=== PATIENT | female | born 1950 | race Caucasian/White ===

== ENCOUNTER 2017-06-11 18:50 | Inpatient (IN) | payer MEDICARE, MEDICAID ==
[~2017-06-11] VITALS: Ht 162.6 cm; Wt 129.4 kg
[~2017-06-11 18:50] MED LIST: ACET325T53 PO; ACID1TAB4 PO; AMLO10TA2 PO; ASCO500T9 PO; ATOR20TA PO; BISA10SU8 RC; BLOO-360 IN; CALC667C PO; CLON0.1T PO; DEXT50DI8 IV; DOCU100C36 PO; DULO60CA45 PO; FERR325T24 PO; FLUO20TA28 PO; FOLI0.8T2 PO; HYDR-552 PO; INSU100C SQ; INSU100V7 SQ; IPRA3AMP IH; MECL-102 PO; RIVA20TA PO; RXVAN IV; SENN-18 PO; ZINC220T PO
--- NOTE | 2017-06-11 19:00 | NUR ---
Pt unable to provide information about home medications, pt stated " my doctor is faxing a list ".
--- NOTE | 2017-06-11 19:02 | NUR ---
sbar report to wili cope.
[2017-06-11 19:51] LABS: BASOPHILS # (AUTO) 0.1 K/uL (0.0-8.0); BASOPHILS % (AUTO) 0.9 % (0.0-2.0); EOSINOPHILS % (AUTO) 0.8 % (0.0-7.0); HEMATOCRIT 38.7 % (31.2-41.9); HEMOGLOBIN 12.8 g/dL (10.9-14.3); LYMPHOCYTES # (AUTO) 1.6 K/uL (20.0-40.0); LYMPHOCYTES % (AUTO) 24.9 % (20.5-51.5); MEAN CORPUSCULAR HGB CONC 33 g/dL (32.3-35.6); MEAN CORPUSCULAR VOLUME 88.2 fL (75.5-95.3); MONOCYTES # (AUTO) 0.4 K/uL (2.0-10.0); MONOCYTES % (AUTO) 6.1 % (0.0-11.0); NEUTROPHILS # (AUTO) 4.3 K/uL (1.8-8.9); NEUTROPHILS % (AUTO) 67.3 % (38.5-71.5); PLATELET COUNT (AUTO) 214 K/uL (179-408); RED BLOOD CELL COUNT(AUTO) 4.39 MIL/uL (3.63-4.92); WHITE BLOOD COUNT (AUTO) 6.4 K/uL (3.8-11.8)
[2017-06-11 21:27] LABS: *BLOOD, URINE NEGATIVE (NEGATIVE); *COLOR,URINE YELLOW (YELLOW); *KETONES,URINE TRACE (NEGATIVE); *PROTEIN,URINE 1+ (NEGATIVE); *UROBILINOGEN,URINE 0.2 E.U./dl (NORMAL); LEUKOCYTE ESTERASE ,URINE TRACE (NEGATIVE); NITRITE, URINE NEGATIVE (NEGATIVE); UGLUCOSE NEGATIVE (NEGATIVE)
[2017-06-11 21:46] LABS: *BILIRUBIN,URIN NEGATIVE (NEGATIVE); *CLARITY,URINE HAZY (CLEAR)
[2017-06-11 21:47] LABS: BACTERIA,URINE FEW /HPF (NONE SEEN); MUCUS,URINE MODERATE /LPF (0-FEW); RBC,URINE 0-3 /HPF (0-3); SQUAMOUS EPITHELIAL CELL,UR FEW /HPF (NONE SEEN); URINE AMORPHOUS URATE MODERATE /HPF
[2017-06-11] MEDS ORDERED: HYDROCODONE/APAP 5-325MG TABLET PO ONE (22:15)
--- NOTE | 2017-06-11 22:15 | NUR ---
Patient reports left foot in pain, 12/03. MD notified.
[2017-06-11] MEDS ORDERED: HYDROCODONE/APAP 5-325MG TABLET ONE (22:16)
--- NOTE | 2017-06-11 23:00 | NUR ---
Received admission report from [facility]
--- NOTE | 2017-06-11 23:00 | NUR ---
Passed report to Marah Chen.
--- NOTE | 2017-06-11 23:04 | NUR ---
Reassessed pain, patient states still hurts but a little better pain now 5/10 on left foot.
[2017-06-11] MEDS ORDERED: ACETAMINOPHEN 325 MG TABLET PO PRN (23:30)
[2017-06-11] MEDS ORDERED: ONDANSETRON 4 MG/2 ML VIAL IV PRN (23:30)
[2017-06-11] MEDS ORDERED: DEXTROSE 50% 50 ML DISP.SYRIN IV PRN (23:30)
[2017-06-11] MEDS ORDERED: Z GUARD REMEDY PASTE 57 GM TUBE TOP PRN (23:30)
[2017-06-12 00:33] VITALS: BP 132/56
[2017-06-12] MEDS ORDERED: VANCOMYCIN IV 1,500 MG in IV DEXTROSE 5% 250 ML IV ONE (01:00)
--- NOTE | 2017-06-12 01:25 | NUR ---
Admitted patient from ER via lisa DX; wound. AAO X 4, able to make needs known. Routine admission care done. Plan of care initiated.
--- NOTE | 2017-06-12 01:39 | NUR ---
Vancocin IV ATB not given. No IV access, awaiting for PICC line placement in morning.
[2017-06-12 05:01] VITALS: BP 123/77
--- NOTE | 2017-06-12 06:31 | NUR ---
Slept well. No complaint presented all night. All needs attended and met. No significant event reported. Continue care as planned.
[2017-06-12] MEDS: BLOOD SUGAR DIAGNOSTIC 1 EACH STRIP VI SCH ×4 (06:44→21:26)
[2017-06-12 07:09] LABS: BASOPHILS % (AUTO) 0.4 % (0.0-2.0); EOSINOPHILS # (AUTO) 0.1 K/uL (0.0-0.7); EOSINOPHILS % (AUTO) 1.8 % (0.0-7.0); HEMATOCRIT 34.2 % (31.2-41.9); HEMOGLOBIN 11.4 g/dL (10.9-14.3); LYMPHOCYTES # (AUTO) 1.6 K/uL (20.0-40.0); LYMPHOCYTES % (AUTO) 32.5 % (20.5-51.5); MEAN CORPUSCULAR HEMOGLOBIN 28.9 uug (24.7-32.8); MEAN CORPUSCULAR HGB CONC 33 g/dL (32.3-35.6); MEAN CORPUSCULAR VOLUME 87.1 fL (75.5-95.3); MONOCYTES # (AUTO) 0.4 K/uL (2.0-10.0); MONOCYTES % (AUTO) 7.9 % (0.0-11.0); NEUTROPHILS # (AUTO) 2.8 K/uL (1.8-8.9); NEUTROPHILS % (AUTO) 57.4 % (38.5-71.5); PLATELET COUNT (AUTO) 211 K/uL (179-408); RED BLOOD CELL COUNT(AUTO) 3.93 MIL/uL (3.63-4.92); WHITE BLOOD COUNT (AUTO) 4.9 K/uL (3.8-11.8)
[2017-06-12 07:36] LABS: CREATININE 1.4 mg/dL (0.6-1.3); MAGNESIUM 2.3 mg/dL (1.8-2.4)
[2017-06-12] MEDS: INSULIN REGULAR, HUMAN 300 UNIT/3 ML VIAL SQ PRN ×2 (07:51→11:57)
--- NOTE | 2017-06-12 08:00 | NUR ---
AWAKE ALERT AND ORIENTED INSULIN PER COVERAGE GIVEN ORDERED DENIES PAIN OR DISCOMFORTS AT THIS TIME ON ROOM AIR WITH NO SHORTNESS OF BREATH AT THIS TIME LEFT FOOT WITH DRESSING INTACT WITH NO DRAINAGE AT THIS TIME AWAITING FOR MID LINE PLACEMENT AT THIS TIME MADE COMFORTABLE AND WILL CONTINUE TO OBSERVE
[2017-06-12] MEDS: ACIDOPHILUS/BULGARICUS CHEW TAB PO SCH ×2 (08:40→16:39)
[2017-06-12] MEDS: ZINC SULFATE 220 MG CAPSULE PO SCH (08:41)
[2017-06-12] MEDS: DULOXETINE 60 MG CAPSULE.DR PO SCH (08:41)
[2017-06-12] MEDS: CALCIUM ACETATE 667 MG CAPSULE PO SCH ×3 (08:41→16:39)
[2017-06-12] MEDS: ASCORBIC ACID 500 MG TABLET PO SCH ×2 (08:41→16:39)
[2017-06-12] MEDS: FOLIC ACID/VITAMIN B COMP W-C TABLET PO SCH (08:41)
[2017-06-12] MEDS: AMLODIPINE 10 MG TABLET PO SCH (08:42)
[2017-06-12] MEDS: DOCUSATE SODIUM 100 MG CAPSULE PO SCH ×2 (08:48→16:40)
[2017-06-12] MEDS: HYDROCODONE/APAP 5-325MG TABLET PO PRN ×2 (09:12→16:40)
--- NOTE | 2017-06-12 09:33 | NUR ---
THE REAL TIME OPERATOR AWARE THAT PATIENT HAS NO IV SITE STATED WILL ATTEMPT TO PLACE THE LINE HIMSELF
--- NOTE | 2017-06-12 10:20 | NUR ---
THE 911 EMERGENCY DISPATCHER HERE AND INSERTED A GAUGE 20 TO HER LEFT FOREARM INTACT AND PATENT FLUSED PER PROTOCOL
[2017-06-12 11:38] VITALS: BP 128/49
[2017-06-12] MEDS: IV NS 1000 ML 1,000 ML IV PRN (11:47)
[2017-06-12] MEDS: FLUOXETINE HCL 20 MG CAPSULE PO SCH (11:47)
[2017-06-12] MEDS: OXYCODONE HCL 20 MG TAB.SR.12H PO SCH ×2 (12:35→20:47)
[2017-06-12] MEDS ORDERED: VANCOMYCIN IV 1,750 MG in IV NORMAL SALINE 500 ML IV SCH (14:00)
[2017-06-12 15:42] VITALS: BP 101/48
--- NOTE | 2017-06-12 16:28 | NUR ---
Clinical pharmacy note-Vancomycin dosing per pharmacy Subjective: To start Vancomycin dosing on this patient for suspected infection(left foot ulcer with possible gangrene) Patient has history of osteomyelitis. Objective: BUN 23 Scr 1.4 WBC 4.9 Temp 98.4 Ht 5'4" Wt 285 lbs Assessment/Plan: Vancomycin was ordered during the night but not given(no IV access). First dose of Vancomycin given today at 1400 as 1750mg IV every 24hrs. Will draw trough by 4th dose(not ordered yet)for expected trough around 16. Will monitor daily.
[2017-06-12] MEDS: SENNOSIDES 1 TABLET PO SCH (16:40)
--- NOTE | 2017-06-12 16:58 | NUR ---
DRESSING CHANGED TO HER RIGHT BIG TOE AND THE LEFT FOOT TOES WOUNG SEEN BY JUAN FORD WITH NEW ORDERS AND NOTED.
[2017-06-12] MEDS: FERROUS SULFATE 325 MG TABEC PO SCH (17:12)
[2017-06-12] MEDS: RIVAROXABAN 10 MG TABLET PO SCH (17:16)
--- NOTE | 2017-06-12 19:30 | NUR ---
Awake, watching TV during initial rounds. Denies any pain/discomforts at this time. Bilateral foot dressing dry and intact. Able to reposition self for comfort. Will continue care as planned.
[2017-06-12] MEDS: ATORVASTATIN 20 MG TABLET PO SCH (20:47)
--- NOTE | 2017-06-12 20:52 | NUR ---
Seen by Car Wash Attendant Automatic today. Patient tolerated procedure well.
[2017-06-12 20:56] VITALS: BP 96/50
[2017-06-12] MEDS: INSULIN REGULAR, HUMAN 300 UNITS/3 ML VIAL SQ PRN (21:28)
[2017-06-13] MEDS: IV NS 1000 ML 1,000 ML IV PRN ×2 (02:12→20:03)
[2017-06-13 04:00] VITALS: BP 123/71
[2017-06-13] MEDS: BLOOD SUGAR DIAGNOSTIC 1 EACH STRIP VI SCH ×4 (04:56→20:41)
[2017-06-13] MEDS: HYDROCODONE/APAP 5-325MG TABLET PO PRN (06:14)
[2017-06-13] MEDS ORDERED: OFLO5DRO3 LEFTEYE (06:34)
[2017-06-13] MEDS ORDERED: PRED5DRO16 EACHEYE (06:34)
[2017-06-13] MEDS ORDERED: NEPA1.7D OP (06:34)
--- NOTE | 2017-06-13 06:38 | NUR ---
Medicated once for complaint of left foot pain. Will monitor otherwise no significant event reported all night. Continue current plan of care.
--- NOTE | 2017-06-13 07:30 | NUR ---
AWAKE ALERT AND ORIENTED REMAIN ON ROOM AIR WITH NO SHORTNESS OF BREATH AT THIS TIME.REMAIN ON IVF ORDERED WITH NO S/S OF INFILTERATION ON SITE.NO S/S OF HYPO/HYPERGLYCEMIC REACTIONS AT THIS TIME DRESSING IS DRY AND INTACT TO LEFT FOOT MADE COMFORTABLE.
[2017-06-13] MEDS: INSULIN REGULAR, HUMAN 300 UNIT/3 ML VIAL SQ PRN ×2 (07:53→11:45)
[2017-06-13] MEDS: DULOXETINE 60 MG CAPSULE.DR PO SCH (08:02)
[2017-06-13] MEDS: FLUOXETINE HCL 20 MG CAPSULE PO SCH (08:03)
[2017-06-13] MEDS: ASCORBIC ACID 500 MG TABLET PO SCH ×2 (08:03→16:42)
[2017-06-13] MEDS: ZINC SULFATE 220 MG CAPSULE PO SCH (08:03)
[2017-06-13] MEDS: ACIDOPHILUS/BULGARICUS CHEW TAB PO SCH ×2 (08:03→16:42)
[2017-06-13] MEDS: FOLIC ACID/VITAMIN B COMP W-C TABLET PO SCH (08:03)
[2017-06-13] MEDS: CALCIUM ACETATE 667 MG CAPSULE PO SCH ×3 (08:03→16:42)
[2017-06-13] MEDS: FERROUS SULFATE 325 MG TABEC PO SCH ×3 (08:03→17:25)
[2017-06-13] MEDS: AMLODIPINE 10 MG TABLET PO SCH (08:04)
[2017-06-13] MEDS: OXYCODONE HCL 20 MG TAB.SR.12H PO SCH ×2 (08:04→20:37)
[2017-06-13] MEDS: SENNOSIDES 1 TABLET PO SCH ×2 (08:05→16:52)
[2017-06-13] MEDS: DOCUSATE SODIUM 100 MG CAPSULE PO SCH ×2 (08:05→16:42)
[2017-06-13 11:00] LABS: BASOPHILS # (AUTO) 0.1 K/uL (0.0-8.0); BASOPHILS % (AUTO) 0.7 % (0.0-2.0); EOSINOPHILS # (AUTO) 0.2 K/uL (0.0-0.7); EOSINOPHILS % (AUTO) 2.1 % (0.0-7.0); HEMATOCRIT 35.2 % (31.2-41.9); HEMOGLOBIN 11.3 g/dL (10.9-14.3); LYMPHOCYTES # (AUTO) 2.5 K/uL (20.0-40.0); LYMPHOCYTES % (AUTO) 32.1 % (20.5-51.5); MEAN CORPUSCULAR HEMOGLOBIN 28.7 uug (24.7-32.8); MEAN CORPUSCULAR HGB CONC 32 g/dL (32.3-35.6); MEAN CORPUSCULAR VOLUME 89.5 fL (75.5-95.3); MONOCYTES # (AUTO) 0.5 K/uL (2.0-10.0); MONOCYTES % (AUTO) 6.8 % (0.0-11.0); NEUTROPHILS # (AUTO) 4.5 K/uL (1.8-8.9); NEUTROPHILS % (AUTO) 58.3 % (38.5-71.5); PLATELET COUNT (AUTO) 176 K/uL (179-408); RED BLOOD CELL COUNT(AUTO) 3.94 MIL/uL (3.63-4.92); WHITE BLOOD COUNT (AUTO) 7.7 K/uL (3.8-11.8)
[2017-06-13 11:08] LABS: CREATININE 1.5 mg/dL (0.6-1.3); MAGNESIUM 2.1 mg/dL (1.8-2.4); PHOSPHOROUS 4.1 mg/dL (2.5-4.9); POTASSIUM 4.5 mmol/L (3.5-5.1)
--- NOTE | 2017-06-13 11:30 | NUR ---
Clinical pharmacy note-Vancomycin dosing per pharmacy Subjective: To continue Vancomycin dosing on this patient for suspected infection(left foot ulcer with possible gangrene) Patient has history of osteomyelitis. Objective: BUN 25 Scr 1.5 WBC 7.7 Temp 98.7 Ht 5'4" Wt 285 lbs Assessment/Plan: Since srcr has increased, will change vancomycin dose to vanco 1500mg IVPB q24h for predicted vanco trough level of 16.5 at steady state. 1st dose is due today at 1400. Plan to draw trough by 4th dose(not ordered yet). Will monitor srcr and adjust the dose if needed. Will monitor daily.
[2017-06-13 11:41] VITALS: BP 122/76
[2017-06-13] MEDS: VANCOMYCIN IV 1,500 MG in IV NORMAL SALINE 500 ML IV SCH (13:54)
[2017-06-13 15:50] VITALS: BP 97/53
[2017-06-13] MEDS ORDERED: PIPERACILLIN/TAZOBACTAM/D5W 3.375 G in PREMIXED 1 EACH IV SCH (16:15)
[2017-06-13] MEDS: PIPERACILLIN/TAZOBACTAM/D5W 3.375 G in PREMIXED 1 EACH IV SCH ×2 (16:55→22:04)
[2017-06-13] MEDS: RIVAROXABAN 10 MG TABLET PO SCH (17:26)
[2017-06-13] MEDS ORDERED: PIPERACILLIN/TAZOBACTAM/D5W 2.25 G in PREMIXED 1 EACH IV SCH (18:00)
--- NOTE | 2017-06-13 18:00 | NUR ---
REMAIN ON IV ATB ORDERED WITH NO ADVERSE OR ALLERGIC REACTIONS AT THIS TIME REMAIN ON PAIN MEDICATIONS AND PATIENT IS COMFORTABLE NOT IN DISTRESS.
--- NOTE | 2017-06-13 19:15 | NUR ---
RECEIVED PT AWAKE, ALERT, ORIENTEDX4. PT SHOWS NO SIGNS OF DISTRESS. CALL LIGHT WITHIN REACH. BED IN LOW POSITION AND BED ALARM ON. WILL CONTINUE TO MONITOR.
[2017-06-13 20:00] VITALS: BP 128/54
[2017-06-13] MEDS: ATORVASTATIN 20 MG TABLET PO SCH (20:36)
[2017-06-13] MEDS: INSULIN REGULAR, HUMAN 300 UNITS/3 ML VIAL SQ PRN (20:45)
[2017-06-13] MEDS ORDERED: prednisoLONE ACET 1% OPHT DROP 5 ML BOTTLE EACHEYE SCH (21:00)
[2017-06-13] MEDS ORDERED: HOME MED MISCELLANEOUS XX SCH ×2 (21:30)
[2017-06-13] MEDS: OFLOXACIN 0.3% LEFTEYE SCH (22:05)
[2017-06-13] MEDS: PREDNISOLONE 1% LEFTEYE SCH (22:05)
[2017-06-14 04:31] VITALS: BP 120/46
[2017-06-14] MEDS: PIPERACILLIN/TAZOBACTAM/D5W 3.375 G in PREMIXED 1 EACH IV SCH ×3 (05:09→21:14)
--- NOTE | 2017-06-14 06:08 | NUR ---
PT SLEPT THROUGHOUT THE SHIFT. PT SHOWS NO SIGNS OF ACUTE DISTRESS. PT VITAL SIGNS WITHIN NORMAL LIMIT. PRESCRIBED MEDICATION GIVEN AND PT TOLERATED IT WELL. PT SAFETY AND COMFORT PROVIDED.
[2017-06-14] MEDS: BLOOD SUGAR DIAGNOSTIC 1 EACH STRIP VI SCH ×4 (06:31→21:23)
--- NOTE | 2017-06-14 07:45 | NUR ---
RECEIVED IN BED WITH EYES CLOSED OPENS EYES WHEN NAME IS CALLED DENIES PAIN OR DISCOMFORTS AT THIS TIME.REMAIN ON IVF ORDERED WITH NO S/S OF INFILTERATION ON SITE.NO S/S OF HYPO/HYPERGLYCEMIC REACTIONS AT THIS TIME.WILL CONTINUE TO OBSERVE.
[2017-06-14] MEDS: DULOXETINE 60 MG CAPSULE.DR PO SCH (08:48)
[2017-06-14] MEDS: FLUOXETINE HCL 20 MG CAPSULE PO SCH (08:48)
[2017-06-14] MEDS: ZINC SULFATE 220 MG CAPSULE PO SCH (08:48)
[2017-06-14] MEDS: FOLIC ACID/VITAMIN B COMP W-C TABLET PO SCH (08:48)
[2017-06-14] MEDS: CALCIUM ACETATE 667 MG CAPSULE PO SCH ×3 (08:49→16:49)
[2017-06-14] MEDS: ACIDOPHILUS/BULGARICUS CHEW TAB PO SCH ×2 (08:49→16:49)
[2017-06-14] MEDS: FERROUS SULFATE 325 MG TABEC PO SCH ×3 (08:49→17:11)
[2017-06-14] MEDS: ASCORBIC ACID 500 MG TABLET PO SCH ×2 (08:49→16:49)
[2017-06-14] MEDS: OXYCODONE HCL 20 MG TAB.SR.12H PO SCH ×2 (08:50→21:15)
[2017-06-14] MEDS: AMLODIPINE 10 MG TABLET PO SCH (08:50)
[2017-06-14] MEDS: DOCUSATE SODIUM 100 MG CAPSULE PO SCH ×2 (08:55→16:49)
[2017-06-14] MEDS: PREDNISOLONE 1% LEFTEYE SCH ×4 (08:55→21:16)
[2017-06-14] MEDS: SENNOSIDES 1 TABLET PO SCH ×2 (08:56→16:49)
[2017-06-14] MEDS: ILEVRO LEFTEYE SCH (08:57)
[2017-06-14] MEDS: OFLOXACIN 0.3% LEFTEYE SCH ×4 (08:58→21:16)
[2017-06-14 11:15] VITALS: BP 140/65
[2017-06-14] MEDS: IV NS 1000 ML 1,000 ML IV PRN (12:11)
[2017-06-14] MEDS: INSULIN REGULAR, HUMAN 300 UNIT/3 ML VIAL SQ PRN (12:20)
[2017-06-14] MEDS: VANCOMYCIN IV 1,500 MG in IV NORMAL SALINE 500 ML IV SCH (13:39)
--- NOTE | 2017-06-14 14:07 | NUR ---
Clinical pharmacy note-Vancomycin dosing per pharmacy Subjective: To continue Vancomycin dosing on this patient for suspected infection(left foot ulcer with possible gangrene) Patient has history of osteomyelitis. Objective: BUN 25 (2) Scr 1.5 (2) WBC 7.7 (2) Temp 98.3 Ht 5'4" Wt 285 lbs Assessment/Plan: Will continue vancomycin dose to vanco 1500mg IVPB q24h for predicted vanco trough level of 16.5 at steady state. 2nd dose is due today at 1400. Plan to draw trough by 4th dose(not ordered yet). Will monitor srcr and adjust the dose if needed. Will monitor daily.
--- NOTE | 2017-06-14 14:30 | NUR ---
CALLED DR OSBORN AND NOTIFIED HIM RE RESULTS OF THE SENSITIVITIES FOR STAPH AUREUS AND PROTEOS MIRABILIS BUT ENTEROCOCCUS SPECIES NOT AVAILABLE YET WITH NO NEW ORDERS AT THIS TIME.
[2017-06-14 15:10] VITALS: BP 124/57
[2017-06-14] MEDS: RIVAROXABAN 10 MG TABLET PO SCH (17:12)
--- NOTE | 2017-06-14 19:30 | NUR ---
RECEIVED PT AWAKE, ALERT, ORIENTEDX3. PT SHE'S NO SIGNS OF ACUTE DISTRESS. PT SAID HER LEFT FOOT HURTS. PT IV INTACT AND PATENT. CALL LIGHT WITHIN REACH. WILL CONTINUE TO MONITOR.
[2017-06-14 20:27] VITALS: BP 130/64
[2017-06-14] MEDS: ATORVASTATIN 20 MG TABLET PO SCH (21:15)
[2017-06-14] MEDS: INSULIN REGULAR, HUMAN 300 UNITS/3 ML VIAL SQ PRN (21:42)
[2017-06-15 05:09] VITALS: BP 102/44
[2017-06-15] MEDS: PIPERACILLIN/TAZOBACTAM/D5W 3.375 G in PREMIXED 1 EACH IV SCH ×3 (05:45→21:28)
[2017-06-15] MEDS: IV NS 1000 ML 1,000 ML IV PRN (05:45)
--- NOTE | 2017-06-15 06:30 | NUR ---
PT SLEPT THROUGHOUT THE SHIFT.PT VITAL SIGNS WITHIN NORMAL LIMIT. ALL PRESCRIBED MEDICATIONS GIVEN AND PT TOLERATED IT WELL. IV PATENT AND NO INLITRATION. CALL LIGHT WITHIN REACH, BED ALARM ON AND IN LOW POSITION. SAFETY AND COMFORT PROVIDED. ALL NEEDS ARE MET. CONTINUE CARE OF PLAN.
--- NOTE | 2017-06-15 07:00 | NUR ---
PT BLOOD SUGAR 146. ENDORSED TO DAYSHIFT NURSE.
[2017-06-15] MEDS: BLOOD SUGAR DIAGNOSTIC 1 EACH STRIP VI SCH ×4 (07:24→21:42)
[2017-06-15] MEDS: FERROUS SULFATE 325 MG TABEC PO SCH ×3 (08:00→17:04)
[2017-06-15] MEDS: INSULIN REGULAR, HUMAN 300 UNIT/3 ML VIAL SQ PRN ×2 (08:29→11:42)
--- NOTE | 2017-06-15 08:30 | NUR ---
PATIENT IS AWAKE ALERT AND ORIENTED REMAIN ON CONTACT ISOLATION AND PRECAUTION RELATED TO MRSA ON HER LEFT LEG WOUND.REMAIN ON ANTIBIOTICS ORDERED WITH NO S/S OF ADVERSE OR ALLERGIC REACTIONS AT THIS TIME. ON IVF WITH NO S/S OF INFILTERATION ON HER LEFT ARM CALL LIGHTS AND HER PERSONAL BELONGINGS ARE WITHIN EASY REACH MADE COMFORTABLE NO DISTRESS AT THIS TIME.
[2017-06-15] MEDS: CALCIUM ACETATE 667 MG CAPSULE PO SCH ×3 (08:39→16:39)
[2017-06-15] MEDS: DOCUSATE SODIUM 100 MG CAPSULE PO SCH ×2 (08:39→16:40)
[2017-06-15] MEDS: ACIDOPHILUS/BULGARICUS CHEW TAB PO SCH ×2 (08:39→16:40)
[2017-06-15] MEDS: FOLIC ACID/VITAMIN B COMP W-C TABLET PO SCH (08:39)
[2017-06-15] MEDS: ASCORBIC ACID 500 MG TABLET PO SCH ×2 (08:39→16:40)
[2017-06-15] MEDS: DULOXETINE 60 MG CAPSULE.DR PO SCH (08:40)
[2017-06-15] MEDS: OXYCODONE HCL 20 MG TAB.SR.12H PO SCH ×2 (08:40→21:28)
[2017-06-15] MEDS: FLUOXETINE HCL 20 MG CAPSULE PO SCH (08:40)
[2017-06-15] MEDS: SENNOSIDES 1 TABLET PO SCH ×2 (08:40→16:40)
[2017-06-15] MEDS: ZINC SULFATE 220 MG CAPSULE PO SCH (08:40)
[2017-06-15] MEDS: AMLODIPINE 10 MG TABLET PO SCH (08:41)
[2017-06-15] MEDS: ILEVRO LEFTEYE SCH (08:43)
[2017-06-15] MEDS: PREDNISOLONE 1% LEFTEYE SCH ×4 (08:43→21:42)
[2017-06-15] MEDS: OFLOXACIN 0.3% LEFTEYE SCH ×4 (08:43→21:41)
--- NOTE | 2017-06-15 10:00 | NUR ---
RESTING DOSING ON AND OFF COMFORTABLE AT THIS TIME.WILL CONTINUE TO OBSERVE.
[2017-06-15 11:13] VITALS: BP 141/64
--- NOTE | 2017-06-15 11:26 | NUR ---
PATIENT SEEN AND EXAMINED BY DR HUDSON WITH NEW ORDERS AND NOTED.
[2017-06-15 11:56] LABS: BILIRUBIN,TOTAL 0.2 mg/dL (0.2-1.0); CREATININE 1.5 mg/dL (0.6-1.3); MAGNESIUM 2.3 mg/dL (1.8-2.4); PHOSPHOROUS 4.6 mg/dL (2.5-4.9); POTASSIUM 4.8 mmol/L (3.5-5.1); TOTAL PROTEIN, SERUM 6.3 g/dL (6.4-8.2)
[2017-06-15] MEDS: HYDROCODONE/APAP 5-325MG TABLET PO PRN (12:26)
--- NOTE | 2017-06-15 12:26 | NUR ---
Clinical pharmacy note-Vancomycin dosing per pharmacy Subjective: To continue Vancomycin dosing on this patient for suspected infection(left foot ulcer with possible gangrene) Patient has history of osteomyelitis. Objective: BUN 25 (06/13) Scr 1.5 (06/13) WBC 7.7 (06/13) Temp 98.4 Ht 5'4" Wt 285 lbs Assessment/Plan: Will continue vancomycin dose to vanco 1500mg IVPB q24h for predicted vanco trough level of 16.5 at steady state. 3rd dose is due today at 1400. Plan to draw trough by 4th dose(ordered for 06/16 at 1330). Pharmacy shall review the level when available & adjust the dose if needed. Will monitor daily.
[2017-06-15 13:34] LABS: BASOPHILS % (AUTO) 0.5 % (0.0-2.0); EOSINOPHILS # (AUTO) 0.2 K/uL (0.0-0.7); EOSINOPHILS % (AUTO) 2.4 % (0.0-7.0); HEMOGLOBIN 11.2 g/dL (10.9-14.3); LYMPHOCYTES # (AUTO) 1.8 K/uL (20.0-40.0); LYMPHOCYTES % (AUTO) 24.6 % (20.5-51.5); MEAN CORPUSCULAR HEMOGLOBIN 28.9 uug (24.7-32.8); MEAN CORPUSCULAR HGB CONC 33 g/dL (32.3-35.6); MEAN CORPUSCULAR VOLUME 88.1 fL (75.5-95.3); MONOCYTES # (AUTO) 0.5 K/uL (2.0-10.0); MONOCYTES % (AUTO) 6.3 % (0.0-11.0); NEUTROPHILS # (AUTO) 4.9 K/uL (1.8-8.9); NEUTROPHILS % (AUTO) 66.2 % (38.5-71.5); PLATELET COUNT (AUTO) 185 K/uL (179-408); RED BLOOD CELL COUNT(AUTO) 3.86 MIL/uL (3.63-4.92); WHITE BLOOD COUNT (AUTO) 7.4 K/uL (3.8-11.8)
[2017-06-15] MEDS: VANCOMYCIN IV 1,500 MG in IV NORMAL SALINE 500 ML IV SCH (14:41)
[2017-06-15 15:03] VITALS: BP 114/60
--- NOTE | 2017-06-15 16:06 | NUR ---
ORDER TO DISCHARGE PATIENT TO [facility] NOTED AND CARRIED OUT AWAITING FOR DISCHARGE TO BE FINALISED.THE MEASUREMENT AND SENSING TECHNICIAN SPOKE WITH THE PATIENT AND SHE AGREES TO GO TO [facility] TODAY.
--- NOTE | 2017-06-15 16:20 | NUR ---
DR REVELES THE VASCULAR SURGEON HERE TO SEE PATIENT AND STATED THAT PATIENT SHOULD CALL HIM AND ARRANGE FOR SURGERY ON HER LEFT FOOT.PATIENT AWARE .
--- NOTE | 2017-06-15 16:55 | NUR ---
PER DR JEWELL PATIENT WILL NEED TO BE ON VANCO AND ZOSYN FOR 14 DAYS AND ONLY HAS A PERIPHERAL LINE SO ORDERED MID LINE SUSAN THE PICC LINE NURSE CALLED BY THE HYDROMETER FINISHER AND MESSAGE LEFT ON HIS VOICE MAIL.PATIENT AWARE OF THE NEED FOR MID LINE .
[2017-06-15] MEDS: RIVAROXABAN 10 MG TABLET PO SCH (17:04)
--- NOTE | 2017-06-15 17:50 | NUR ---
[facility] ATTENDANT STATED THAT PATIENT WILL BE DISCHARGED TOMORROW INSTEAD PATIENT IS AWARE.
[2017-06-15 17:56] LABS: *BILIRUBIN,URIN NEGATIVE (NEGATIVE); *BLOOD, URINE NEGATIVE (NEGATIVE); *CLARITY,URINE SLIGHTLY CLOUDY (CLEAR); *COLOR,URINE YELLOW (YELLOW); *KETONES,URINE NEGATIVE (NEGATIVE); *PROTEIN,URINE NEGATIVE (NEGATIVE); *UROBILINOGEN,URINE 0.2 E.U./dl (NORMAL); LEUKOCYTE ESTERASE ,URINE 1+ (NEGATIVE); NITRITE, URINE NEGATIVE (NEGATIVE); UGLUCOSE NEGATIVE (NEGATIVE)
[2017-06-15 18:04] LABS: BACTERIA,URINE FEW /HPF (NONE SEEN); RBC,URINE 0-3 /HPF (0-3); SQUAMOUS EPITHELIAL CELL,UR MANY /HPF (NONE SEEN)
[2017-06-15 18:06] LABS: *CREATININE,URINE 97.1 mg/dL (30-125); *URINE TOTAL PROTEIN RANDOM 37.1 mg/dL (<150/24HR)
--- NOTE | 2017-06-15 19:45 | NUR ---
nsg: pt received a/o x 4. denies pain, sob or any discomfort. lungs sound clear to auscultate, on Ra. on cont ivf. dressings on left foot and right great toe dry and intact. call light within reach. bed alarm on.
--- NOTE | 2017-06-15 19:54 | NUR ---
nsg: spoke with hafsa walters. notified regarding order for midline. per Nicholas Walters will come in am to insert midline.
[2017-06-15 20:00] VITALS: BP 129/69
[2017-06-15] MEDS: ATORVASTATIN 20 MG TABLET PO SCH (21:28)
[2017-06-15] MEDS: INSULIN REGULAR, HUMAN 300 UNITS/3 ML VIAL SQ PRN (21:43)
[2017-06-16 04:00] VITALS: BP 158/59
--- NOTE | 2017-06-16 05:26 | NUR ---
nsg: all needs attended. kept clean and dry. had huge, formed, hard bm x 1. denies discomfort at this time. cont with treatment plan.
[2017-06-16] MEDS: IV NS 1000 ML 1,000 ML IV PRN (06:07)
[2017-06-16] MEDS: HYDROCODONE/APAP 5-325MG TABLET PO PRN ×2 (06:08→14:33)
[2017-06-16] MEDS: PIPERACILLIN/TAZOBACTAM/D5W 3.375 G in PREMIXED 1 EACH IV SCH ×2 (06:08→13:06)
[2017-06-16 06:39] LABS: BASOPHILS % (AUTO) 0.3 % (0.0-2.0); EOSINOPHILS # (AUTO) 0.2 K/uL (0.0-0.7); EOSINOPHILS % (AUTO) 2.2 % (0.0-7.0); HEMATOCRIT 32.5 % (31.2-41.9); HEMOGLOBIN 10.7 g/dL (10.9-14.3); LYMPHOCYTES # (AUTO) 1.6 K/uL (20.0-40.0); LYMPHOCYTES % (AUTO) 22.6 % (20.5-51.5); MEAN CORPUSCULAR HEMOGLOBIN 28.7 uug (24.7-32.8); MEAN CORPUSCULAR HGB CONC 33 g/dL (32.3-35.6); MEAN CORPUSCULAR VOLUME 87.5 fL (75.5-95.3); MONOCYTES # (AUTO) 0.4 K/uL (2.0-10.0); NEUTROPHILS # (AUTO) 4.9 K/uL (1.8-8.9); NEUTROPHILS % (AUTO) 68.9 % (38.5-71.5); PLATELET COUNT (AUTO) 190 K/uL (179-408); RED BLOOD CELL COUNT(AUTO) 3.71 MIL/uL (3.63-4.92); WHITE BLOOD COUNT (AUTO) 7.2 K/uL (3.8-11.8)
[2017-06-16] MEDS: BLOOD SUGAR DIAGNOSTIC 1 EACH STRIP VI SCH ×3 (06:48→16:30)
--- NOTE | 2017-06-16 06:49 | NUR ---
nsg: dressing changed on left foot. tolerated well. received norco 1 tab.
[2017-06-16 07:15] LABS: BILIRUBIN,TOTAL 0.3 mg/dL (0.2-1.0); CREATININE 1.4 mg/dL (0.6-1.3); MAGNESIUM 2.1 mg/dL (1.8-2.4); PHOSPHOROUS 3.8 mg/dL (2.5-4.9); POTASSIUM 4.2 mmol/L (3.5-5.1); TOTAL PROTEIN, SERUM 6.3 g/dL (6.4-8.2)
--- NOTE | 2017-06-16 07:20 | NUR ---
Received client in bed sleeping, there is no signs and symptoms of SOB, pain, distress or discomfort. IV hydration running at this time. Bed at lowest position for safety and call light within reach for assistance.
[2017-06-16] MEDS: FERROUS SULFATE 325 MG TABEC PO SCH ×3 (08:00→18:00)
--- NOTE | 2017-06-16 08:52 | NUR ---
Client refused Feosol due to constipation.
[2017-06-16] MEDS: INSULIN REGULAR, HUMAN 300 UNIT/3 ML VIAL SQ PRN ×3 (09:07→17:53)
[2017-06-16] MEDS: ACIDOPHILUS/BULGARICUS CHEW TAB PO SCH ×2 (09:08→17:42)
[2017-06-16] MEDS: DULOXETINE 60 MG CAPSULE.DR PO SCH (09:09)
[2017-06-16] MEDS: CALCIUM ACETATE 667 MG CAPSULE PO SCH ×3 (09:09→17:42)
[2017-06-16] MEDS: SENNOSIDES 1 TABLET PO SCH ×2 (09:09→17:42)
[2017-06-16] MEDS: FLUOXETINE HCL 20 MG CAPSULE PO SCH (09:09)
[2017-06-16] MEDS: OXYCODONE HCL 20 MG TAB.SR.12H PO SCH (09:09)
[2017-06-16] MEDS: ASCORBIC ACID 500 MG TABLET PO SCH ×2 (09:09→17:42)
[2017-06-16] MEDS: DOCUSATE SODIUM 100 MG CAPSULE PO SCH ×2 (09:09→17:42)
[2017-06-16] MEDS: ZINC SULFATE 220 MG CAPSULE PO SCH (09:09)
[2017-06-16] MEDS: FOLIC ACID/VITAMIN B COMP W-C TABLET PO SCH (09:09)
[2017-06-16] MEDS: PREDNISOLONE 1% LEFTEYE SCH ×3 (09:15→17:43)
[2017-06-16] MEDS: OFLOXACIN 0.3% LEFTEYE SCH ×3 (09:16→17:43)
[2017-06-16] MEDS: AMLODIPINE 10 MG TABLET PO SCH (09:16)
[2017-06-16] MEDS: ILEVRO LEFTEYE SCH (09:16)
[2017-06-16 11:25] VITALS: BP 119/50
--- NOTE | 2017-06-16 11:25 | NUR ---
Client refused Feosol medication due qt 1200, stating she doesn't want it Addendum: 06/16/17 at 1327 by CHIKI BATRES RN at
--- NOTE | 2017-06-16 13:28 | NUR ---
Upper midline 18g done
[2017-06-16] MEDS: VANCOMYCIN IV 1,500 MG in IV NORMAL SALINE 500 ML IV SCH (14:00)
--- NOTE | 2017-06-16 14:00 | NUR ---
Vancocin not given. Waiting for Vanco trough results. Client is being discharge to [facility], facility is aware she is being sent out without Vancocin being given
--- NOTE | 2017-06-16 14:30 | NUR ---
Client was changed, noted with redness underneath the fold between her in thigh and groin area. Also noted with redness on her sacral area. She was cleaned and dried during diaper change and Z-guard applied as a skin barrier.
[2017-06-16] MEDS ORDERED: SENN-167 PO (15:28)
[2017-06-16] MEDS ORDERED: INSU100V28 SQ (15:28)
[2017-06-16] MEDS ORDERED: RXVAN XX (15:28)
[2017-06-16] MEDS ORDERED: ACET325T53 PO (15:28)
[2017-06-16] MEDS ORDERED: PIPE3.379 IV (15:28)
[2017-06-16] MEDS ORDERED: DEXT50DI8 IV (15:28)
[2017-06-16] MEDS ORDERED: Blood Sugar Diagnostic VI (15:28)
[2017-06-16] MEDS ORDERED: FERR325T28 PO (15:28)
--- NOTE | 2017-06-16 15:29 | NUR ---
Clinical pharmacy note-Vancomycin dosing per pharmacy Subjective: To continue Vancomycin dosing on this patient for suspected infection(left foot ulcer with possible gangrene) Patient has history of osteomyelitis. Objective: BUN 24 Scr 1.4 WBC 7.2 Temp 98.8 Ht 5'4" Wt 285 lbs trough: 21.1 today at 1400 Assessment/Plan: Based on level, will change regimen from 1500mg q24h to vanco 2gm q36h for new estimated trough of 16.3. Will recheck trough before 4th scheduled dose (not ordered yet). Will dose per level or adjust if renal function were to change. Will follow
[2017-06-16 15:54] VITALS: BP 121/55
--- NOTE | 2017-06-16 16:30 | NUR ---
Accu check done, sliding scale as ordered and cleansed Accu check machine.
[2017-06-16] MEDS: RIVAROXABAN 10 MG TABLET PO SCH (17:44)
--- NOTE | 2017-06-16 18:04 | NUR ---
Client is being discharge to [facility] at this time via amb[facility]anz accompanied by two inbound sales manager with MD orders. Feosol was refused by client as she did previously due to constipations. Client is in stable conditions, VS WNL. Medications given late due postpone scheduled discharge since 1529. No pain, SOB, distress or discomfort at this time.
[2017-06-16] MEDS ORDERED: VANCOMYCIN IV 2,000 MG in IV DEXTROSE 5% 500 ML IV SCH (21:00)
== END 2017-06-16 18:08 | DRG 299 ==
LOC: ER 18:51 → MED 23:30
PROVIDERS: ADMIT Nurse Practitioner Acute Care; ATTEND Nurse Practitioner Acute Care
PROC: 05H533Z Insertion of Infusion Device into Right Subclavian Vein, Percutaneous Approach (ICD-10-PCS; principal; 2017-06-16)
DX: I96 Gangrene, not elsewhere classified (principal); N17.0 Acute kidney failure with tubular necrosis; E11.42 Type 2 diabetes mellitus with diabetic polyneuropathy; E66.01 Morbid (severe) obesity due to excess calories; E11.22 Type 2 diabetes mellitus with diabetic chronic kidney disease; L03.116 Cellulitis of left lower limb; L97.518 Non-pressure chronic ulcer of other part of right foot with other specified severity; Z68.42 Body mass index [BMI] 45.0-49.9, adult; I70.262 Atherosclerosis of native arteries of extremities with gangrene, left leg; E11.52 Type 2 diabetes mellitus with diabetic peripheral angiopathy with gangrene; Z79.4 Long term (current) use of insulin; E78.5 Hyperlipidemia, unspecified; Z79.01 Long term (current) use of anticoagulants; L97.521 Non-pressure chronic ulcer of other part of left foot limited to breakdown of skin; I70.235 Atherosclerosis of native arteries of right leg with ulceration of other part of foot; I69.319 Unspecified symptoms and signs involving cognitive functions following cerebral infarction; I48.91 Unspecified atrial fibrillation; Z71.3 Dietary counseling and surveillance; D50.9 Iron deficiency anemia, unspecified; Z83.3 Family history of diabetes mellitus; Z80.42 Family history of malignant neoplasm of prostate; Z89.412 Acquired absence of left great toe; Z98.42 Cataract extraction status, left eye; I25.10 Atherosclerotic heart disease of native coronary artery without angina pectoris; Z87.891 Personal history of nicotine dependence; Z90.710 Acquired absence of both cervix and uterus; I12.9 Hypertensive chronic kidney disease with stage 1 through stage 4 chronic kidney disease, or unspecified chronic kidney disease; N18.2 Chronic kidney disease, stage 2 (mild); B95.62 Methicillin resistant Staphylococcus aureus infection as the cause of diseases classified elsewhere; B95.2 Enterococcus as the cause of diseases classified elsewhere; B96.4 Proteus (mirabilis) (morganii) as the cause of diseases classified elsewhere; E11.65 Type 2 diabetes mellitus with hyperglycemia; M85.872 Other specified disorders of bone density and structure, left ankle and foot; Z86.14 Personal history of Methicillin resistant Staphylococcus aureus infection; M81.0 Age-related osteoporosis without current pathological fracture; I15.2 Hypertension secondary to endocrine disorders; I25.2 Old myocardial infarction
CPT/HCPCS: 36415; 71045; 73630; 73700; 83735; 84100; 84156; 84300; 85025; 85651; 87040; 87070; 87077; 93005; A4217; A4663; C1758; J1815; J2543; J2650; J3370; J7030; J7040; J7060

== ENCOUNTER 2017-06-26 16:22 | Inpatient (IN) | payer MEDICARE, MEDICAID ==
[~2017-06-26] VITALS: Ht 152.4 cm; Wt 147.9 kg
[~2017-06-26 16:22] MED LIST changes: -BLOO-360 IN; +Blood Sugar Diagnostic VI; -FERR325T24 PO; +FERR325T28 PO; -FLUO20TA28 PO; -INSU100C SQ; +INSU100V28 SQ; +PIPE3.379 IV; -RXVAN IV; +RXVAN XX; +SENN-167 PO; -SENN-18 PO
--- NOTE | 2017-06-26 16:34 | NUR ---
PT IS IN ROOM #1B. DR POLLACK EVALUATED THE PT.
[2017-06-26] MEDS ORDERED: methylPREDNISolone SOD SUCC 125 MG/2 ML VIAL IV ONE (17:00)
[2017-06-26] MEDS ORDERED: FLUC200T PO (17:25)
[2017-06-26] MEDS ORDERED: BLOO-140 IN (17:25)
[2017-06-26] MEDS ORDERED: PIPE3.379 IV (17:25)
[2017-06-26] MEDS ORDERED: ZINC220C8 PO (17:25)
[2017-06-26] MEDS ORDERED: SENN-167 PO (17:25)
[2017-06-26] MEDS ORDERED: NYST1POW2 MC (17:25)
[2017-06-26] MEDS ORDERED: HYDR-552 PO (17:25)
[2017-06-26] MEDS ORDERED: DIPH25CA83 PO (17:25)
[2017-06-26] MEDS ORDERED: VANC1VIA4 IV (17:25)
[2017-06-26] MEDS ORDERED: PROT946L PO (17:25)
[2017-06-26] MEDS ORDERED: INSU100V7 SQ (17:25)
[2017-06-26] MEDS ORDERED: ACET325T53 PO (17:25)
[2017-06-26] MEDS ORDERED: MULT-213 PO (17:25)
[2017-06-26] MEDS ORDERED: RIVA20TA PO (17:25)
[2017-06-26] MEDS ORDERED: FERR325T28 PO (17:25)
[2017-06-26] MEDS ORDERED: ACID1TAB4 PO (17:25)
[2017-06-26] MEDS ORDERED: OXYB10TA PO (17:25)
[2017-06-26] MEDS ORDERED: methylPREDNISolone SOD SUCC 125 MG/2 ML VIAL ONE (17:54)
[2017-06-26 18:14] LABS: BASOPHILS # (AUTO) 0.1 K/uL (0.0-8.0); BASOPHILS % (AUTO) 1.2 % (0.0-2.0); EOSINOPHILS # (AUTO) 0.4 K/uL (0.0-0.7); EOSINOPHILS % (AUTO) 3.5 % (0.0-7.0); HEMATOCRIT 32.9 % (31.2-41.9); HEMOGLOBIN 10.9 g/dL (10.9-14.3); LYMPHOCYTES % (AUTO) 16.7 % (20.5-51.5); MEAN CORPUSCULAR HEMOGLOBIN 28.5 uug (24.7-32.8); MEAN CORPUSCULAR HGB CONC 33 g/dL (32.3-35.6); MONOCYTES # (AUTO) 0.6 K/uL (2.0-10.0); MONOCYTES % (AUTO) 5.1 % (0.0-11.0); NEUTROPHILS % (AUTO) 73.5 % (38.5-71.5); PLATELET COUNT (AUTO) 287 K/uL (179-408); RED BLOOD CELL COUNT(AUTO) 3.82 MIL/uL (3.63-4.92); WHITE BLOOD COUNT (AUTO) 12.2 K/uL (3.8-11.8)
[2017-06-26 18:24] LABS: CREATININE 1.4 mg/dL (0.6-1.3); POTASSIUM 3.6 mmol/L (3.5-5.1)
[2017-06-26 18:31] LABS: BILIRUBIN,DIRECT 0.1 mg/dL (0.0-0.2); BILIRUBIN,TOTAL 0.4 mg/dL (0.2-1.0); TOTAL PROTEIN, SERUM 6.9 g/dL (6.4-8.2)
[2017-06-26] MEDS ORDERED: ASPIRIN 81 MG TAB.CHEW ONE (18:42)
[2017-06-26] MEDS ORDERED: NITROGLYCERIN OINT 1 GM PACKET TP ONE ×2 (18:42→18:45)
[2017-06-26] MEDS ORDERED: diphenhydrAMINE 50 MG/1 ML VIAL ONE (18:42)
[2017-06-26] MEDS ORDERED: diphenhydrAMINE 50 MG/1 ML VIAL IV ONE (18:45)
[2017-06-26] MEDS ORDERED: CLONIDINE HCL 0.1 MG TABLET PO PRN ×2 (18:45→23:38)
[2017-06-26] MEDS ORDERED: MECLIZINE HCL 25 MG TABLET PO PRN (18:45)
[2017-06-26] MEDS ORDERED: ASPIRIN 81 MG TAB.CHEW PO ONE (18:45)
[2017-06-26] MEDS ORDERED: BISACODYL 10 MG SUPP.RECT RC PRN ×2 (18:45→23:37)
[2017-06-26] MEDS ORDERED: METOPROLOL TARTRATE 50 MG TABLET PO SCH (19:00)
[2017-06-26] MEDS ORDERED: METOPROLOL TARTRATE 5 MG/5 ML VIAL IVP ONE ×2 (19:00→19:14)
--- NOTE | 2017-06-26 19:00 | NUR ---
REPORT GIVEN TO REAL PROPERTY APPRAISERCABLEWAY OPERATOR.
[2017-06-26] MEDS ORDERED: ACETAMINOPHEN 325 MG TABLET PO PRN (19:15)
[2017-06-26] MEDS ORDERED: MAGNESIUM HYDROXIDE 30 ML LIQUID UDC PO PRN (19:15)
[2017-06-26] MEDS ORDERED: Z GUARD REMEDY PASTE 57 GM TUBE TOP PRN (19:15)
[2017-06-26] MEDS ORDERED: ONDANSETRON 4 MG/2 ML VIAL IV PRN (19:15)
[2017-06-26] MEDS ORDERED: DILTIAZEM HCL 50 MG IV IV PRN (19:15)
--- NOTE | 2017-06-26 20:28 | NUR ---
Received as BARBARA status to room CCU #2. Came from [facility]. Received report from ER dept nurse FELI Carrillo. Alert & orientated X4. Noted elevated troponin & generalized body rash from medication Zosyn. No chest pain ever today. See wound photographs. Right upper arm central line. Wears diaper.
[2017-06-26] MEDS ORDERED: Medication Not On Formulary EA (Oxybutynin Chloride (Oxybutynin Chloride Er) 1 TAB) PO SCH (21:00)
[2017-06-26] MEDS ORDERED: ATORVASTATIN 20 MG TABLET ONE (21:15)
--- NOTE | 2017-06-26 21:15 | NUR ---
Contact phone numbers: (primary caregiver) [email or web address] Ashlyn Reyna [phone], son Jeferson [phone], son Rolan [phone]
--- NOTE | 2017-06-26 21:15 | NUR ---
Note to Pharmacy. Lipitor, Lopressor & Protonix have; or, will be charted elsewhere in eMar.
[2017-06-26] MEDS ORDERED: METOPROLOL TARTRATE 25 MG TABLET ONE (21:17)
[2017-06-26] MEDS ORDERED: PANTOPRAZOLE SODIUM 40 MG TABLET.DR PO ONE (21:17)
[2017-06-26] MEDS: ATORVASTATIN 20 MG TABLET PO SCH (21:19)
[2017-06-26] MEDS ORDERED: PIPERACILLIN/TAZOBACTAM/D5W 3.375 G in PREMIXED 1 EACH IV SCH (22:00)
[2017-06-26] MEDS ORDERED: MORPHINE SULFATE 4 MG/1 ML DISP.SYRIN IV PRN (22:15)
[2017-06-26] MEDS ORDERED: VANCOMYCIN IV 2,000 MG in IV DEXTROSE 5% 500 ML IV ONE (23:00)
[2017-06-26] MEDS ORDERED: VANCOMYCIN 1000 MG VIAL ONE (23:41)
[2017-06-27 00:01] VITALS: BP 112/76
[2017-06-27] MEDS: HYDROCODONE/APAP 5-325MG TABLET PO PRN ×2 (01:46→23:18)
[2017-06-27] MEDS: diphenhydrAMINE 25 MG CAP PO PRN (01:46)
[2017-06-27 04:00] VITALS: BP 138/79
[2017-06-27 05:04] LABS: BASOPHILS % (AUTO) 0.1 % (0.0-2.0); EOSINOPHILS % (AUTO) 0.1 % (0.0-7.0); HEMATOCRIT 30.8 % (31.2-41.9); HEMOGLOBIN 9.9 g/dL (10.9-14.3); LYMPHOCYTES # (AUTO) 0.9 K/uL (20.0-40.0); MEAN CORPUSCULAR HGB CONC 32 g/dL (32.3-35.6); MEAN CORPUSCULAR VOLUME 86.6 fL (75.5-95.3); MONOCYTES # (AUTO) 0.1 K/uL (2.0-10.0); MONOCYTES % (AUTO) 0.9 % (0.0-11.0); NEUTROPHILS % (AUTO) 90.9 % (38.5-71.5); PLATELET COUNT (AUTO) 249 K/uL (179-408); RED BLOOD CELL COUNT(AUTO) 3.55 MIL/uL (3.63-4.92)
[2017-06-27 05:22] LABS: CREATININE 1.4 mg/dL (0.6-1.3); MAGNESIUM 2.1 mg/dL (1.8-2.4); PHOSPHOROUS 4.1 mg/dL (2.5-4.9); POTASSIUM 4.3 mmol/L (3.5-5.1)
[2017-06-27] MEDS: PANTOPRAZOLE SODIUM 40 MG TABLET.DR PO SCH (06:21)
[2017-06-27] MEDS ORDERED: INSULIN REGULAR, HUMAN 300 UNITS/3 ML VIAL SQ PRN (07:00)
[2017-06-27] MEDS ORDERED: DEXTROSE 50% 50 ML DISP.SYRIN IV PRN (07:00)
[2017-06-27] MEDS: BLOOD SUGAR DIAGNOSTIC 1 EACH STRIP VI SCH ×4 (07:44→21:04)
[2017-06-27] MEDS: CALCIUM ACETATE 667 MG CAPSULE PO SCH ×3 (07:49→17:00)
[2017-06-27] MEDS: ASCORBIC ACID 500 MG TABLET PO SCH ×2 (07:50→17:00)
[2017-06-27] MEDS: DOCUSATE SODIUM 100 MG CAPSULE PO SCH ×2 (07:50→17:00)
[2017-06-27] MEDS: ACIDOPHILUS/BULGARICUS CHEW TAB PEG SCH ×2 (07:50→17:00)
[2017-06-27] MEDS: MULTIVIT, IRON, MIN NO. 8, FA TABLET PO SCH (07:53)
[2017-06-27] MEDS: FLUCONAZOLE 200 MG TABLET PO SCH (07:57)
[2017-06-27] MEDS: DULOXETINE 60 MG CAPSULE.DR PO SCH (07:57)
[2017-06-27] MEDS: OXYBUTYNIN CHLORIDE 5 MG TABLET PO SCH ×2 (07:58→21:04)
[2017-06-27 08:00] VITALS: BP 149/77
[2017-06-27] MEDS: INSULIN REGULAR, HUMAN 300 UNIT/3 ML VIAL SQ PRN ×3 (08:04→17:14)
[2017-06-27] MEDS: METOPROLOL TARTRATE 50 MG TABLET PO SCH ×2 (08:10→17:08)
[2017-06-27] MEDS: AMLODIPINE 10 MG TABLET PO SCH (08:10)
[2017-06-27] MEDS ORDERED: ASPIRIN 325 MG TABLET PO SCH (09:00)
[2017-06-27] MEDS ORDERED: Medication Not On Formulary EA (Multivitamins W-Minerals (Daily Multivitamin-Minerals) 1 PO SCH (09:00)
--- NOTE | 2017-06-27 09:37 | NUR ---
Dr. Hickey here to see pt. Full report given. New orders received. stated that it was okay to downgrade pt to telemetry status.
--- NOTE | 2017-06-27 09:38 | NUR ---
US tech here to see pt for 2D Echocardiogram.
[2017-06-27 12:00] VITALS: BP 161/84
[2017-06-27 16:00] VITALS: BP 149/77
[2017-06-27] MEDS: RIVAROXABAN 10 MG TABLET PO SCH (17:02)
[2017-06-27 20:00] VITALS: BP 123/84
--- NOTE | 2017-06-27 20:00 | NUR ---
Pt a Telemetry Status. Awake, alert, pleasant and cooperative. States had a good day. Stable VS and rhythm controlled AFib. Resp easy and regular, on room air. Family at bedside and pt happy with their presence.
[2017-06-27] MEDS ORDERED: INSULIN GLARGINE,HUM 300 UNITS/3 ML CARTRIDGE SQ SCH (21:00)
[2017-06-27] MEDS: ATORVASTATIN 20 MG TABLET PO SCH (21:03)
--- NOTE | 2017-06-27 21:30 | NUR ---
Enjoyed HS snacks. Playing games on phone, watching TV. Needs reminder not to peel off skin.
--- NOTE | 2017-06-27 21:30 | NUR ---
Medication profile reviewed with pt. Pt states takes Lantus Insulin 30 units SQ q HS. Dr. Hickey notified and new order received.
[2017-06-27] MEDS ORDERED: INSULIN GLARGINE,HUM 300 UNITS/3 ML CARTRIDGE SQ ONE (21:54)
[2017-06-28 01:00] VITALS: BP 120/61
--- NOTE | 2017-06-28 01:00 | NUR ---
Total bath and skin care rendered, had large soft formed BM on diaper. Lotion generously applied on body. Kept clean, dry and comfortable. Appreciative of care.
[2017-06-28] MEDS ORDERED: diphenhydrAMINE 25 MG CAP PO ONE (01:46)
[2017-06-28] MEDS: diphenhydrAMINE 25 MG CAP PO PRN ×2 (01:52→11:03)
--- NOTE | 2017-06-28 02:00 | NUR ---
Benadry PO given for generalized itching. Nursing comfort measures observed.
--- NOTE | 2017-06-28 06:15 | NUR ---
Sleeping since 299. In no apparent acute distress. Stable controlled Afib rate 80's.
--- NOTE | 2017-06-28 07:10 | NUR ---
report received from Abner. 67 yr old female was admitted on 06/26/17 for elevated troponin and body rash. here on tele status, under the [facility]. Patient has multiple body rash and cellulitis left leg and gangrene left big toe. ekg atrial fib. has PICC line single lumen catheter via rught upper arm. has diaper but voiding. Addendum: 06/28/17 at 0936 by SINTIA LEONARDO RN Amended: Links added.
[2017-06-28 08:00] VITALS: BP 142/68
[2017-06-28] MEDS: PANTOPRAZOLE SODIUM 40 MG TABLET.DR PO SCH (08:16)
[2017-06-28] MEDS: BLOOD SUGAR DIAGNOSTIC 1 EACH STRIP VI SCH ×3 (08:24→16:30)
[2017-06-28] MEDS: INSULIN REGULAR, HUMAN 300 UNIT/3 ML VIAL SQ PRN ×2 (08:27→11:54)
[2017-06-28] MEDS: MULTIVIT, IRON, MIN NO. 8, FA TABLET PO SCH (08:28)
[2017-06-28] MEDS: CALCIUM ACETATE 667 MG CAPSULE PO SCH ×3 (08:28→17:34)
[2017-06-28] MEDS: ASCORBIC ACID 500 MG TABLET PO SCH ×2 (08:28→17:34)
[2017-06-28] MEDS: AMLODIPINE 10 MG TABLET PO SCH (08:28)
[2017-06-28] MEDS: DOCUSATE SODIUM 100 MG CAPSULE PO SCH ×2 (08:28→17:34)
[2017-06-28] MEDS: METOPROLOL TARTRATE 50 MG TABLET PO SCH ×2 (08:29→17:35)
[2017-06-28 08:52] LABS: BASOPHILS # (AUTO) 0.1 K/uL (0.0-8.0); BASOPHILS % (AUTO) 0.7 % (0.0-2.0); EOSINOPHILS % (AUTO) 0.3 % (0.0-7.0); HEMATOCRIT 29.5 % (31.2-41.9); HEMOGLOBIN 9.6 g/dL (10.9-14.3); LYMPHOCYTES # (AUTO) 1.9 K/uL (20.0-40.0); LYMPHOCYTES % (AUTO) 15.6 % (20.5-51.5); MEAN CORPUSCULAR HEMOGLOBIN 27.9 uug (24.7-32.8); MEAN CORPUSCULAR HGB CONC 32 g/dL (32.3-35.6); MEAN CORPUSCULAR VOLUME 86.2 fL (75.5-95.3); MONOCYTES # (AUTO) 0.5 K/uL (2.0-10.0); MONOCYTES % (AUTO) 3.9 % (0.0-11.0); NEUTROPHILS # (AUTO) 9.5 K/uL (1.8-8.9); NEUTROPHILS % (AUTO) 79.5 % (38.5-71.5); PLATELET COUNT (AUTO) 299 K/uL (179-408); RED BLOOD CELL COUNT(AUTO) 3.43 MIL/uL (3.63-4.92); WHITE BLOOD COUNT (AUTO) 11.9 K/uL (3.8-11.8)
[2017-06-28 09:00] LABS: CREATININE 1.7 mg/dL (0.6-1.3); MAGNESIUM 2.2 mg/dL (1.8-2.4); PHOSPHOROUS 3.3 mg/dL (2.5-4.9); POTASSIUM 3.9 mmol/L (3.5-5.1)
[2017-06-28] MEDS ORDERED: ASPIRIN 81 MG TAB.CHEW PO SCH (09:00)
[2017-06-28] MEDS ORDERED: ASPIRIN 325 MG TABLET PO SCH (09:00)
[2017-06-28] MEDS: FLUCONAZOLE 200 MG TABLET PO SCH (09:15)
[2017-06-28] MEDS: DULOXETINE 60 MG CAPSULE.DR PO SCH (09:15)
[2017-06-28] MEDS: OXYBUTYNIN CHLORIDE 5 MG TABLET PO SCH (09:15)
[2017-06-28] MEDS: ACIDOPHILUS/BULGARICUS CHEW TAB PEG SCH ×2 (09:16→17:34)
--- NOTE | 2017-06-28 10:59 | NUR ---
transferred to Room 221 as tele status. report given to Karen [facility] Addendum: 06/28/17 at 1059 by SINTIA LEONARDO RN Amended: Links added.
[2017-06-28] MEDS ORDERED: VANCOMYCIN IV 2,000 MG in IV NORMAL SALINE 500 ML IV SCH (11:00)
--- NOTE | 2017-06-28 11:00 | NUR ---
PT RECEIVED FROM CCU. CALM, COOPERATIVE, STABLE, TELE. NO SIGNS OF RESPIRATORY DISTRESS. MIDLINE INTACT. CONTINUE TO MONITOR PT.
[2017-06-28 11:23] VITALS: BP 132/60
[2017-06-28 15:43] VITALS: BP 141/60
[2017-06-28 17:35] VITALS: BP 141/60
[2017-06-28] MEDS: RIVAROXABAN 10 MG TABLET PO SCH (17:36)
--- NOTE | 2017-06-28 19:21 | NUR ---
PT D/C TO [facility] VIA AMBULANCE. PT MIDLINE REMOVED, PHOTO TAKEN, ID BAND REMOVED, REPORT GIVEN TO NURSE AT [facility], NURSE NAME DAPHNEY. PT IS STABLE FOR D/C. PT WILL D/C WITH EXIT CARE PACKET, ALL BELONGINGS AND VALUABLES. WILL ENDORSE TO ELIGIBILITY SERVICES REPRESENTATIVE NURSE. PT TRAVELING VIA AMBULANCE.
--- NOTE | 2017-06-28 20:12 | NUR ---
NSG: PT PICKED UP BY AMBULANCE TO BE DISCHARGED TO [facility].
== END 2017-06-28 22:27 | DRG 606 ==
LOC: ER 16:23 → CCU 20:07 → TELE 06-28 10:40
PROVIDERS: ADMIT Internal Medicine; ATTEND Internal Medicine
DX: L27.0 Generalized skin eruption due to drugs and medicaments taken internally (principal); I21.4 Non-ST elevation (NSTEMI) myocardial infarction; E43 Unspecified severe protein-calorie malnutrition; N17.9 Acute kidney failure, unspecified; I96 Gangrene, not elsewhere classified; E11.22 Type 2 diabetes mellitus with diabetic chronic kidney disease; E11.42 Type 2 diabetes mellitus with diabetic polyneuropathy; E66.01 Morbid (severe) obesity due to excess calories; L03.116 Cellulitis of left lower limb; I48.2 Chronic atrial fibrillation; E11.52 Type 2 diabetes mellitus with diabetic peripheral angiopathy with gangrene; Z68.44 Body mass index [BMI] 60.0-69.9, adult; E11.65 Type 2 diabetes mellitus with hyperglycemia; T36.95XA Adverse effect of unspecified systemic antibiotic, initial encounter; Y92.129 Unspecified place in nursing home as the place of occurrence of the external cause; Z79.4 Long term (current) use of insulin; Z79.01 Long term (current) use of anticoagulants; D63.8 Anemia in other chronic diseases classified elsewhere; I13.10 Hypertensive heart and chronic kidney disease without heart failure, with stage 1 through stage 4 chronic kidney disease, or unspecified chronic kidney disease; N18.9 Chronic kidney disease, unspecified; Z90.710 Acquired absence of both cervix and uterus; Z86.73 Personal history of transient ischemic attack (TIA), and cerebral infarction without residual deficits; L29.9 Pruritus, unspecified; F32.9 Major depressive disorder, single episode, unspecified; F41.9 Anxiety disorder, unspecified; E78.5 Hyperlipidemia, unspecified; E88.09 Other disorders of plasma-protein metabolism, not elsewhere classified; Z89.412 Acquired absence of left great toe; Z86.14 Personal history of Methicillin resistant Staphylococcus aureus infection; I25.10 Atherosclerotic heart disease of native coronary artery without angina pectoris
CPT/HCPCS: 36415; 70030-TC; 71045; 83605; 83735; 84100; 85025; 85730; 87040; 87077; 93005; 93307; A4663; J1200; J1815; J2930; J3370; J3490; J7060; Q0163

== ENCOUNTER 2017-09-15 13:46 | Inpatient (IN) | payer MEDICARE, MEDICAID ==
[~2017-09-15] VITALS: Ht 152.4 cm; Wt 147.4 kg
[~2017-09-15 13:46] MED LIST changes: +BLOO-140 IN; -Blood Sugar Diagnostic VI; -DEXT50DI8 IV; +DIPH25CA83 PO; +FLUC200T PO; -FOLI0.8T2 PO; -INSU100V28 SQ; +MULT-213 PO; +NYST1POW2 MC; +OXYB10TA PO; -PIPE3.379 IV; +PROT946L PO; -RXVAN XX; +ZINC220C8 PO; -ZINC220T PO
[2017-09-15] MEDS ORDERED: VANCOMYCIN IV 1,000 MG in IV DEXTROSE 5% 250 ML IV ONE (14:00)
[2017-09-15] MEDS ORDERED: GENTAMICIN SULFATE INJ 80 MG in IV DEXTROSE 5% 100 ML IV ONE (14:00)
--- NOTE | 2017-09-15 14:00 | NUR ---
COLTED FOOD PROCESSING PLANT MANAGER FOR PICC LINE.
[2017-09-15] MEDS ORDERED: OXYC10TA59 PO (14:15)
[2017-09-15] MEDS ORDERED: CHOL20004 PO (14:15)
[2017-09-15] MEDS ORDERED: OXYC-128 PO ×2 (14:15)
[2017-09-15] MEDS ORDERED: METO25TA6 PO (14:15)
[2017-09-15 14:25] LABS: BASOPHILS % (AUTO) 0.7 % (0.0-2.0); EOSINOPHILS # (AUTO) 0.1 K/uL (0.0-0.7); EOSINOPHILS % (AUTO) 1.4 % (0.0-7.0); HEMATOCRIT 30.9 % (31.2-41.9); HEMOGLOBIN 10.1 g/dL (10.9-14.3); LYMPHOCYTES # (AUTO) 1.3 K/uL (20.0-40.0); LYMPHOCYTES % (AUTO) 22.2 % (20.5-51.5); MEAN CORPUSCULAR HEMOGLOBIN 27.6 uug (24.7-32.8); MEAN CORPUSCULAR HGB CONC 33 g/dL (32.3-35.6); MEAN CORPUSCULAR VOLUME 84.2 fL (75.5-95.3); MONOCYTES # (AUTO) 0.3 K/uL (2.0-10.0); MONOCYTES % (AUTO) 4.5 % (0.0-11.0); NEUTROPHILS # (AUTO) 4.3 K/uL (1.8-8.9); NEUTROPHILS % (AUTO) 71.2 % (38.5-71.5); PLATELET COUNT (AUTO) 167 K/uL (179-408); RED BLOOD CELL COUNT(AUTO) 3.67 MIL/uL (3.63-4.92)
[2017-09-15 14:34] LABS: POTASSIUM 3.9 mmol/L (3.5-5.1)
[2017-09-15 14:39] LABS: BILIRUBIN,DIRECT 0.1 mg/dL (0.0-0.2); BILIRUBIN,TOTAL 0.4 mg/dL (0.2-1.0); TOTAL PROTEIN, SERUM 6.6 g/dL (6.4-8.2)
--- NOTE | 2017-09-15 14:42 | NUR ---
PT TO BE TRANSFERED TO FLOOR PER ER MD ORDER. THE PICC LINE AND IV ANTIBIOTIC INFUSION TO BE DONE IN PATIENT. FLOOR RN NOTIFIED.
[2017-09-15] MEDS ORDERED: GENTAMICIN SULFATE 80 MG/2 ML VIAL ONE (15:13)
[2017-09-15] MEDS ORDERED: VANCOMYCIN IV 200 ML ONE (15:13)
--- NOTE | 2017-09-15 15:55 | NUR ---
PT TRANSFERED TO FLOOR IN STABLE CONDITION
[2017-09-15 16:00] VITALS: BP 171/67
--- NOTE | 2017-09-15 16:10 | NUR ---
Patient transferred from ER into telemetry unit through [facility] in stable condition. Patient A/Ox3, non-ambulatory. wounds present, pictures taken/placed in chart, wound care consult placed. vital signs stable. stable condition, no s/s of distress. on O2 2L NC saturating wnl. Specialty Bariatric Mattress ordered. telemetry leads placed - controlled afib. Patient safely transferred into bed from [facility]. call light within reach. bed in locked/low position, side rails up x3. bed alarm on.
--- NOTE | 2017-09-15 16:59 | NUR ---
blood sugar checked 142.
[2017-09-15] MEDS: HYDROCODONE/APAP 5-325MG TABLET PO PRN (17:17)
--- NOTE | 2017-09-15 17:45 | NUR ---
Patient is a [employer]. Patient verbalized, "I will not get a blood transfusion under any circumstances, even in an emergency. I'd rather than receive a blood transfusion". Refusal to Permit Blood Transfusion form signed by patient and placed in chart.
--- NOTE | 2017-09-15 18:00 | NUR ---
Patient requested for information regarding living will. plate worker helper consultation placed regarding request of information related to living will.
[2017-09-15] MEDS ORDERED: BISACODYL 10 MG SUPP.RECT RC PRN (18:15)
[2017-09-15] MEDS ORDERED: Medication Not On Formulary EA (Diphenhydramine Hcl (Benadryl) 25 MG) PO PRN (18:15)
[2017-09-15] MEDS ORDERED: CLONIDINE HCL 0.1 MG TABLET PO PRN (18:15)
[2017-09-15] MEDS ORDERED: MECLIZINE HCL 25 MG TABLET PO PRN (18:15)
--- NOTE | 2017-09-15 19:30 | NUR ---
Piccline nurse arrived for piccline placement. patient did not have IV-access during admission due to pending piccline placement. consent form signed for piccline placement.
--- NOTE | 2017-09-15 19:30 | NUR ---
Received patient awake, watching TV at this time. Denies any pain at this time. Safety measures maintained. Continue care as planned.
--- NOTE | 2017-09-15 19:39 | NUR ---
PICC line nurse in for PICC line insertion. Supplies needed provided.
[2017-09-15 19:44] VITALS: BP 155/77
[2017-09-15] MEDS ORDERED: Medication Not On Formulary EA (Oxybutynin Chloride (Oxybutynin Chloride Er) 1 TAB) PO SCH (21:00)
[2017-09-15] MEDS ORDERED: Medication Not On Formulary EA (Oxycodone Hcl (Oxycontin) 15 MG) PO SCH (21:00)
[2017-09-15] MEDS: ATORVASTATIN 20 MG TABLET PO SCH (21:10)
[2017-09-15] MEDS: OXYBUTYNIN XL 5 MG TABSR PO SCH (21:10)
[2017-09-15] MEDS: SENNOSIDES 1 TABLET PO SCH (21:10)
[2017-09-15] MEDS: OXYCODONE HCL 10 MG TAB.SR.12H PO SCH (21:11)
[2017-09-15] MEDS: METOPROLOL TARTRATE 25 MG TABLET PO SCH (21:12)
[2017-09-15] MEDS: RIVAROXABAN 10 MG TABLET PO SCH (21:16)
[2017-09-15 23:45] VITALS: BP 130/64
--- NOTE | 2017-09-16 01:00 | NUR ---
IV antibiotics given as ordered without s/s of adverse reaction noted.
--- NOTE | 2017-09-16 01:41 | NUR ---
Still awake during rounds, watching TV. Denies any pain/discomforts.
[2017-09-16 03:45] VITALS: BP 152/46
--- NOTE | 2017-09-16 06:17 | NUR ---
Shift end report: VS stable. No complaint presented all night. Slept late. All needs attended and met. Consent signed for right foot ulceration debridement and left foot transmetatarsal amputation. Continue current plan of care.
[2017-09-16 07:47] LABS: BASOPHILS % (AUTO) 0.6 % (0.0-2.0); EOSINOPHILS # (AUTO) 0.1 K/uL (0.0-0.7); EOSINOPHILS % (AUTO) 2.6 % (0.0-7.0); HEMATOCRIT 29.6 % (31.2-41.9); HEMOGLOBIN 9.5 g/dL (10.9-14.3); LYMPHOCYTES # (AUTO) 1.6 K/uL (20.0-40.0); LYMPHOCYTES % (AUTO) 30.5 % (20.5-51.5); MEAN CORPUSCULAR HEMOGLOBIN 27.2 uug (24.7-32.8); MEAN CORPUSCULAR HGB CONC 32 g/dL (32.3-35.6); MEAN CORPUSCULAR VOLUME 84.4 fL (75.5-95.3); MONOCYTES # (AUTO) 0.3 K/uL (2.0-10.0); MONOCYTES % (AUTO) 6.5 % (0.0-11.0); NEUTROPHILS # (AUTO) 3.1 K/uL (1.8-8.9); NEUTROPHILS % (AUTO) 59.8 % (38.5-71.5); PLATELET COUNT (AUTO) 173 K/uL (179-408); WHITE BLOOD COUNT (AUTO) 5.2 K/uL (3.8-11.8)
[2017-09-16] MEDS: PROTEIN SUPPLEMENT (PROSTAT) 30 ML LIQUID PO SCH ×4 (08:00→17:00)
[2017-09-16] MEDS: CADEXOMER IODINE 40 GM TUBE TOP SCH (08:24)
--- NOTE | 2017-09-16 08:27 | NUR ---
Pt refused morning Pro-stst, protein supplement stating it makes her throw up.
[2017-09-16] MEDS ORDERED: Medication Not On Formulary EA (Cholecalciferol (Vitamin D3) (Vitamin D CAPSULE) 2,000 U PO SCH (09:00)
[2017-09-16] MEDS ORDERED: Medication Not On Formulary EA (Protein Supplement (Promod) 30 ML) PO SCH (09:00)
[2017-09-16] MEDS ORDERED: Medication Not On Formulary EA (Multivitamins W-Minerals (Daily Multivitamin-Minerals) 1 PO SCH (09:00)
[2017-09-16 09:19] LABS: BILIRUBIN,TOTAL 0.5 mg/dL (0.2-1.0); CREATININE 0.9 mg/dL (0.6-1.3); MAGNESIUM 1.8 mg/dL (1.8-2.4); PHOSPHOROUS 3.9 mg/dL (2.5-4.9); POTASSIUM 3.6 mmol/L (3.5-5.1); TOTAL PROTEIN, SERUM 5.9 g/dL (6.4-8.2)
[2017-09-16] MEDS: ASCORBIC ACID 500 MG TABLET PO SCH ×2 (09:59→17:15)
[2017-09-16] MEDS: ZINC SULFATE 220 MG CAPSULE PO SCH (09:59)
[2017-09-16] MEDS: MULTIVIT, IRON, MIN NO. 8, FA TABLET PO SCH (09:59)
[2017-09-16] MEDS: OXYCODONE HCL 10 MG TAB.SR.12H PO SCH ×2 (09:59→20:55)
[2017-09-16] MEDS: FERROUS SULFATE 325 MG TABEC PO SCH (10:00)
[2017-09-16] MEDS: OXYBUTYNIN XL 5 MG TABSR PO SCH ×2 (10:00→20:54)
[2017-09-16] MEDS: DOCUSATE SODIUM 100 MG CAPSULE PO SCH ×2 (10:00→16:35)
[2017-09-16] MEDS: ACIDOPHILUS/BULGARICUS CHEW TAB PO SCH ×2 (10:00→17:15)
[2017-09-16] MEDS: SENNOSIDES 1 TABLET PO SCH ×2 (10:00→20:56)
[2017-09-16] MEDS: DULOXETINE 60 MG CAPSULE.DR PO SCH (10:01)
[2017-09-16] MEDS: CHOLECALCIFEROL 1,000 UNIT TABLET PO SCH (10:01)
[2017-09-16] MEDS: AMLODIPINE 10 MG TABLET PO SCH (10:01)
[2017-09-16] MEDS: METOPROLOL TARTRATE 25 MG TABLET PO SCH ×2 (10:02→20:56)
[2017-09-16] MEDS: SODIUM HYPOCHLORITE 0.125% 473 ML BOTTLE TP SCH ×2 (10:05→17:15)
[2017-09-16] MEDS: CALCIUM ACETATE 667 MG CAPSULE PO SCH ×3 (10:43→17:15)
[2017-09-16 11:04] VITALS: BP 114/51
--- NOTE | 2017-09-16 11:42 | NUR ---
pT REFUSED HER 1200 PRO-STAT STATING IT MAKES HER FEEL NAUSEOUS
--- NOTE | 2017-09-16 14:47 | NUR ---
Big boy bed in place with air mattress
--- NOTE | 2017-09-16 15:33 | NUR ---
MRSA specimen collected.
[2017-09-16 16:10] VITALS: BP 144/39
[2017-09-16 16:35] LABS: *BILIRUBIN,URIN NEGATIVE (NEGATIVE); *BLOOD, URINE NEGATIVE (NEGATIVE); *CLARITY,URINE CLEAR (CLEAR); *COLOR,URINE YELLOW (YELLOW); *KETONES,URINE TRACE (NEGATIVE); *PROTEIN,URINE 2+ (NEGATIVE); *UROBILINOGEN,URINE 0.2 E.U./dl (NORMAL); LEUKOCYTE ESTERASE ,URINE TRACE (NEGATIVE); NITRITE, URINE NEGATIVE (NEGATIVE); UGLUCOSE NEGATIVE (NEGATIVE)
[2017-09-16 16:46] LABS: BACTERIA,URINE NONE SEEN /HPF (NONE SEEN); SQUAMOUS EPITHELIAL CELL,UR FEW /HPF (NONE SEEN)
--- NOTE | 2017-09-16 16:47 | NUR ---
Seen and evaluated by . Confirm to hold Gomez and Pradeep due to tomorrow's surgery
[2017-09-16] MEDS: RIVAROXABAN 10 MG TABLET PO SCH (17:11)
[2017-09-16 19:00] VITALS: BP 134/50
[2017-09-16] MEDS: ATORVASTATIN 20 MG TABLET PO SCH (20:56)
[2017-09-16] MEDS ORDERED: VANCOMYCIN IV 1 G in PREMIXED 0 EACH IV ONE (21:00)
[2017-09-16] MEDS: PIPERACILLIN/TAZOBACTAM/D5W 50 ML IV SCH (21:26)
[2017-09-16] MEDS ORDERED: INSULIN REGULAR, HUMAN 300 UNIT/3 ML VIAL SQ PRN (21:30)
[2017-09-16] MEDS ORDERED: DEXTROSE 50% 50 ML DISP.SYRIN IV PRN (21:30)
[2017-09-17] VITALS: BP 156/73
--- NOTE | 2017-09-17 | NUR ---
1900- pt resting in room 2000- pt watching TV 2100- pt resting in room 2200- pt watching tv, consent signed for procedure. 2300- pt asleep 0000- pt asleep 0100- pt resting in room Addendum: 09/17/17 at 0426 by Staci Sawant RN 2200 pt watching tv 2300 pt resting io room 0000 pt asleep 0100 pt asleep 0200pt asleep 0300 pt resting in room 0400 pt asleep
[2017-09-17] MEDS: BLOOD SUGAR DIAGNOSTIC 1 EACH STRIP VI SCH ×5 (00:07→21:00)
[2017-09-17] MEDS: PIPERACILLIN/TAZOBACTAM/D5W 50 ML IV SCH ×4 (03:52→17:01)
[2017-09-17 04:00] VITALS: BP 142/53
[2017-09-17] MEDS ORDERED: BUPIVACAINE PF 0.5% 30 ML VIAL ONE (06:53)
[2017-09-17] MEDS ORDERED: LIDOCAINE HCL 1% 20 ML VIAL ONE (06:54)
--- NOTE | 2017-09-17 07:10 | NUR ---
Received pt sleeping in bed, easily arousable to name. Pt was informed that surgery nurses had arrived to take her to surgery. Pt stated she was nervous
--- NOTE | 2017-09-17 07:22 | NUR ---
Pt was taken down to surgery via gurney and accompanied by two nurses
[2017-09-17] MEDS ORDERED: PROPOFOL 200 MG/20 ML BOTTLE IV ONE (07:30)
[2017-09-17] MEDS ORDERED: IV NORMAL SALINE 1000 ML BAG IV ONE (07:30)
[2017-09-17] MEDS ORDERED: SEVOFLURANE 250 ML BOTTLE IH ONE (07:30)
[2017-09-17] MEDS ORDERED: LIDOCAINE-MPF 2% 5 ML VIAL MC ONE (07:30)
[2017-09-17] MEDS ORDERED: NEOSTIGMINE METHYLSULFATE 10 MG/10 ML VIAL IV ONE (07:30)
[2017-09-17] MEDS ORDERED: ONDANSETRON 4 MG/2 ML VIAL IV ONE (07:30)
[2017-09-17] MEDS ORDERED: SUCCINYLCHOLINE CHLORIDE 200 MG/10 ML VIAL ONE (07:42)
[2017-09-17] MEDS: PROTEIN SUPPLEMENT (PROSTAT) 30 ML LIQUID PO SCH ×3 (07:42→16:29)
[2017-09-17] MEDS ORDERED: MIDAZOLAM HCL 2 MG/2 ML VIAL ONE (07:42)
[2017-09-17] MEDS ORDERED: FENTANYL CITRATE 100 MCG/2 ML AMPUL ONE ×2 (07:43→10:19)
[2017-09-17] MEDS ORDERED: POLYMYXIN B SULFATE 500,000 UNITS, BACITRACIN 50,000 UNITS, NORMAL SALINE 20 ML MC ONE ×3 (07:45)
[2017-09-17] MEDS: CADEXOMER IODINE 40 GM TUBE TOP SCH (08:00)
--- NOTE | 2017-09-17 08:22 | NUR ---
Pt is off the floor Addendum: 09/17/17 at 0822 by CHIKI BATRES RN Amended: Links added.
[2017-09-17] MEDS: SENNOSIDES 1 TABLET PO SCH ×3 (09:00→20:26)
[2017-09-17] MEDS: CHOLECALCIFEROL 1,000 UNIT TABLET PO SCH (09:00)
[2017-09-17] MEDS: FERROUS SULFATE 325 MG TABEC PO SCH (09:00)
[2017-09-17] MEDS: OXYBUTYNIN XL 5 MG TABSR PO SCH ×2 (09:00→21:25)
[2017-09-17] MEDS: ACIDOPHILUS/BULGARICUS CHEW TAB PO SCH ×2 (09:00→16:29)
[2017-09-17] MEDS: ZINC SULFATE 220 MG CAPSULE PO SCH (09:00)
[2017-09-17] MEDS: METOPROLOL TARTRATE 25 MG TABLET PO SCH ×2 (09:00→20:24)
[2017-09-17] MEDS: DOCUSATE SODIUM 100 MG CAPSULE PO SCH ×2 (09:00→16:29)
[2017-09-17] MEDS: SODIUM HYPOCHLORITE 0.125% 473 ML BOTTLE TP SCH (09:00)
[2017-09-17] MEDS: DULOXETINE 60 MG CAPSULE.DR PO SCH (09:00)
[2017-09-17] MEDS: AMLODIPINE 10 MG TABLET PO SCH (09:00)
[2017-09-17] MEDS: OXYCODONE HCL 10 MG TAB.SR.12H PO SCH ×2 (09:00→20:25)
[2017-09-17] MEDS ORDERED: VANCOMYCIN IV 2,000 MG in IV DEXTROSE 5% 500 ML IV SCH ×2 (09:00→12:00)
[2017-09-17] MEDS: ASCORBIC ACID 500 MG TABLET PO SCH ×2 (09:00→16:29)
[2017-09-17] MEDS: MULTIVIT, IRON, MIN NO. 8, FA TABLET PO SCH (09:00)
--- NOTE | 2017-09-17 09:17 | NUR ---
0900 Medications and ATB not given, pt is absent from the unit due to surgery
--- NOTE | 2017-09-17 11:10 | NUR ---
Received pt back from surgery. Pt is AAOx3. No immediate s/s of pain, distress, discomfort or SOB. Able to switch pt to her big boy bed with the assistance of four other individuals. VS stable
--- NOTE | 2017-09-17 11:31 | NUR ---
Pharmacy aware of pt's arrival back to the floor. ATB will be rescheduled.
[2017-09-17 11:32] VITALS: BP 150/60
--- NOTE | 2017-09-17 11:32 | NUR ---
Pt is off the floor, surgery Addendum: 09/17/17 at 1133 by CHIKI BATRES RN Amended: Links added.
--- NOTE | 2017-09-17 12:11 | NUR ---
WOUND CARE CONSULT: PT PRESENTS WITH LOWER EXTREMITY WOUNDS WHICH ARE MANAGED BY DR CASTRO. DEFER TO [facility] FOR LOWER EXTREMITIES. PT ALSO NOTED TO HAVE SACRAL SCARRING AND RASH WITH IRRITATION OF SKIN TO ABDOMINAL FOLDS, PRESENT ON ADMISSION. RECOMMENDATIONS MADE FOR SKIN PROTECTION AND CARE. DISCUSSED WITH NURSING STAFF. PT ON [facility] BED WITH ETS AIR. WILL SEE PRN. HARRIS IN AGREEMENT WITH PLAN OF CARE. Addendum: 09/17/17 at 1215 by STACEY DALLAS RN Amended: Links added.
[2017-09-17] MEDS ORDERED: Z GUARD REMEDY PASTE 57 GM TUBE TOP PRN (12:15)
[2017-09-17] MEDS: CLOTRIMAZOLE 1% CREAM 30 GM TUBE TOP SCH ×2 (13:21→16:30)
[2017-09-17] MEDS: Z GUARD REMEDY PASTE 57 GM TUBE TOP SCH ×2 (13:22→21:00)
[2017-09-17] MEDS ORDERED: DEXTROSE 50% 50 ML DISP.SYRIN IV PRN (13:30)
--- NOTE | 2017-09-17 13:42 | NUR ---
Confirmed with surgeon that Dakin's is not needed. Dr stated to leave dressing on the left foot on for a couple of days. Dr will reassess when needed and further orders till then.
[2017-09-17 15:20] VITALS: BP 139/55
--- NOTE | 2017-09-17 15:30 | NUR ---
Clinical Pharmacy Note: Vancomycin Pharmacy to Dose Subjective: To start vancomycin in this 67 /yo female for indication of osteomyelitis Objective: weight 147kg height 152 cm BUN 16 Scr 0.9 wbc 5.2 temp 98.3 1gm in Er 09/16 @7386 Assessment/Plan Will start vancomycin 2gm q20hr for estimated trough of 15.6, first dose today at 1200. Will order trough before 4th scheduled dose (not ordered yet). Will dose per level if renal function were to become unstable. Will follow
[2017-09-17] MEDS: INSULIN REGULAR, HUMAN 300 UNIT/3 ML VIAL SQ PRN (16:36)
[2017-09-17] MEDS: RIVAROXABAN 10 MG TABLET PO SCH (17:01)
--- NOTE | 2017-09-17 17:06 | NUR ---
Pt has awoke from her nap since arriving back from surgery. Pt states no pain, compliant with all her medication. ATB hung, pt is noted to be eating her lunch. AAOx3. No immediate s/s of SOB, distress or discomfort.
[2017-09-17] MEDS: OXYCODONE/APAP 5-325 MG TABLET PO PRN (18:11)
--- NOTE | 2017-09-17 18:13 | NUR ---
Percocet given for left foot pain. Noted pt happy and talkative with family, son by bedside.
[2017-09-17 19:00] VITALS: BP 174/61
--- NOTE | 2017-09-17 19:30 | NUR ---
nsg: pt comfortable sleeping in bed. no acute distress noted. on 2L O2 via nc. tele, afib. Left foot with dressing, intact, elevated on a pillow. cont to monitor.
[2017-09-17] MEDS: ATORVASTATIN 20 MG TABLET PO SCH (20:24)
[2017-09-17] MEDS: INSULIN REGULAR, HUMAN 300 UNITS/3 ML VIAL SQ PRN (20:46)
[2017-09-17] MEDS: POTASSIUM CHLORIDE 20 MEQ in IV D5 1/2 NS 1000 ML 1,000 ML IV PRN (20:47)
[2017-09-17] MEDS ORDERED: CLONIDINE HCL 0.1 MG TABLET PO PRN (21:45)
[2017-09-17 21:46] VITALS: BP 142/67
--- NOTE | 2017-09-17 22:30 | NUR ---
NSG: ABD FOLDS CLEANSE WITH SOAP AND WATER. KEPT CLEAN AND DRY. PROVIDED WOUND CARE PER MD ORDER. ALSO, RIGHT GREAT TOE WITH ESCHAR, APPLIED IODOSORB PER MD ORDER.
[2017-09-18] MEDS: PIPERACILLIN/TAZOBACTAM/D5W 50 ML IV SCH ×5 (00:24→23:06)
[2017-09-18] MEDS: OXYCODONE/APAP 5-325 MG TABLET PO PRN ×3 (00:41→15:32)
[2017-09-18 04:00] VITALS: BP 158/41
[2017-09-18] MEDS: BLOOD SUGAR DIAGNOSTIC 1 EACH STRIP VI SCH ×4 (06:14→20:30)
--- NOTE | 2017-09-18 07:30 | NUR ---
ON BED, RESTING, DENIES ACUTE PAIN. NO DISTRESS NOTED.
[2017-09-18 07:55] LABS: BASOPHILS % (AUTO) 0.3 % (0.0-2.0); EOSINOPHILS # (AUTO) 0.1 K/uL (0.0-0.7); EOSINOPHILS % (AUTO) 1.6 % (0.0-7.0); LYMPHOCYTES # (AUTO) 1.5 K/uL (20.0-40.0); LYMPHOCYTES % (AUTO) 16.3 % (20.5-51.5); MEAN CORPUSCULAR HEMOGLOBIN 27.4 uug (24.7-32.8); MEAN CORPUSCULAR HGB CONC 32 g/dL (32.3-35.6); MEAN CORPUSCULAR VOLUME 84.6 fL (75.5-95.3); MONOCYTES # (AUTO) 0.5 K/uL (2.0-10.0); NEUTROPHILS # (AUTO) 7.1 K/uL (1.8-8.9); NEUTROPHILS % (AUTO) 76.8 % (38.5-71.5); RED BLOOD CELL COUNT(AUTO) 3.12 MIL/uL (3.63-4.92)
[2017-09-18] MEDS: INSULIN REGULAR, HUMAN 300 UNIT/3 ML VIAL SQ PRN ×3 (07:56→17:32)
[2017-09-18 07:59] LABS: HEMATOCRIT 26.4 % (31.2-41.9); HEMOGLOBIN 8.7 g/dL (10.9-14.3); PLATELET COUNT (AUTO) 155 K/uL (179-408)
[2017-09-18] MEDS: CADEXOMER IODINE 40 GM TUBE TOP SCH (08:00)
[2017-09-18 08:02] LABS: BILIRUBIN,TOTAL 0.4 mg/dL (0.2-1.0); CREATININE 1.3 mg/dL (0.6-1.3); MAGNESIUM 1.8 mg/dL (1.8-2.4); PHOSPHOROUS 4.2 mg/dL (2.5-4.9); TOTAL PROTEIN, SERUM 5.8 g/dL (6.4-8.2)
[2017-09-18] MEDS: PROTEIN SUPPLEMENT (PROSTAT) 30 ML LIQUID PO SCH ×3 (08:03→17:00)
[2017-09-18] MEDS: DULOXETINE 60 MG CAPSULE.DR PO SCH (08:09)
[2017-09-18] MEDS: ACIDOPHILUS/BULGARICUS CHEW TAB PO SCH ×2 (08:09→17:30)
[2017-09-18] MEDS: ZINC SULFATE 220 MG CAPSULE PO SCH (08:09)
[2017-09-18] MEDS: OXYBUTYNIN XL 5 MG TABSR PO SCH ×2 (08:10→20:28)
[2017-09-18] MEDS: SENNOSIDES 1 TABLET PO SCH ×2 (08:10→20:28)
[2017-09-18] MEDS: CHOLECALCIFEROL 1,000 UNIT TABLET PO SCH (08:10)
[2017-09-18] MEDS: FERROUS SULFATE 325 MG TABEC PO SCH (08:10)
[2017-09-18] MEDS: ASCORBIC ACID 500 MG TABLET PO SCH ×2 (08:11→17:30)
[2017-09-18] MEDS: OXYCODONE HCL 10 MG TAB.SR.12H PO SCH ×2 (08:11→20:29)
[2017-09-18] MEDS: MULTIVIT, IRON, MIN NO. 8, FA TABLET PO SCH (08:11)
[2017-09-18] MEDS: DOCUSATE SODIUM 100 MG CAPSULE PO SCH ×2 (08:11→17:30)
[2017-09-18] MEDS: AMLODIPINE 10 MG TABLET PO SCH (08:18)
[2017-09-18] MEDS: METOPROLOL TARTRATE 25 MG TABLET PO SCH ×2 (08:18→20:28)
[2017-09-18] MEDS: CLOTRIMAZOLE 1% CREAM 30 GM TUBE TOP SCH ×2 (08:19→17:35)
[2017-09-18] MEDS: Z GUARD REMEDY PASTE 57 GM TUBE TOP SCH ×2 (08:19→20:56)
--- NOTE | 2017-09-18 11:10 | NUR ---
SEEN BY DR CASTRO , LEFT FOOT 1ST LAYER OF DRESSING REMOVED AND CHANGE. KEPT CLEAN AND DRY, WILL NOT CHAGE THIS DRESSING PER ORDER. ELEVATED ON 2 PILLOW FOR PATIENT COMFORT, APPRECIATIVE, PT VERBALIZED UNDERSTANDNG.
[2017-09-18 11:46] VITALS: BP 112/47
--- NOTE | 2017-09-18 14:17 | NUR ---
Clinical Pharmacy Note: Vancomycin Pharmacy to Dose Subjective: To continue vancomycin in this 67 /yo female for indication of osteomyelitis Objective: weight 147kg height 152 cm BUN 18 Scr 1.3 (increased from 0.9) wbc 9.0 temp 98.6 random with am labs today 19.1 Assessment/Plan As renal function declined overnight, d/c'd scheduled regimen and will dose per level for now. Based on level and prior admit dosing with similar renal function, will give another 2gm dose tonight at 2100 and order next random with am labs on 09/20. If renal function were to improve again, will reschedule random sooner. Otherwise, will follow level on 09/20 and re-dose. Will follow
[2017-09-18 15:26] VITALS: BP 121/56
--- NOTE | 2017-09-18 15:41 | NUR ---
JUST WOKE UP FROM NAP IN PAIN ,MEDICATED REQUESTED. EMOTIONAL SUPPORT PROVIDED.
[2017-09-18] MEDS: RIVAROXABAN 10 MG TABLET PO SCH (17:33)
--- NOTE | 2017-09-18 18:00 | NUR ---
COMFORTABLE. MED X 1 FOR PAIN WITH RELIEF. NO ACUTE DISTRESS
[2017-09-18] MEDS: ATORVASTATIN 20 MG TABLET PO SCH (20:28)
[2017-09-18] MEDS: INSULIN REGULAR, HUMAN 300 UNITS/3 ML VIAL SQ PRN (20:33)
--- NOTE | 2017-09-18 20:35 | NUR ---
PATIENT AWAKE IN BED, AAOX3. C/O PAIN TO LEFT FOOT MEDS GIVEN ORDERED. NO FEVER ON ASSESSMENT, DRSG TO LEFT FOOT INTACT. SAFETY MEASURES IN PLACE, CALL LIGHT LEFT WITHIN PATIENT'S REACH
[2017-09-18] MEDS: POTASSIUM CHLORIDE 20 MEQ in IV D5 1/2 NS 1000 ML 1,000 ML IV PRN (20:43)
[2017-09-18 20:48] VITALS: BP 156/74
[2017-09-18] MEDS ORDERED: VANCOMYCIN IV 2,000 MG in IV DEXTROSE 5% 500 ML IV ONE (21:00)
[2017-09-19] VITALS: BP 140/57
[2017-09-19] MEDS: OXYCODONE/APAP 5-325 MG TABLET PO PRN ×3 (02:07→11:59)
[2017-09-19 04:00] VITALS: BP_SYST 130; BP_SYST 154; BP_DIAS 30; BP_DIAS 74
[2017-09-19] MEDS: PIPERACILLIN/TAZOBACTAM/D5W 50 ML IV SCH ×4 (05:12→23:11)
[2017-09-19] MEDS: BLOOD SUGAR DIAGNOSTIC 1 EACH STRIP VI SCH ×4 (06:31→20:36)
--- NOTE | 2017-09-19 06:32 | NUR ---
PATIENT IS WATCHING TV, NO ACUTE DISTRESS AT PRESENT. PAIN MEDS GIVEN X1 ON THIS SHIFT. NO FEVER ON THIS SHIFT, BP WITHIN PATIENT'S BASELINE. NO FURTHER CHANGES IN STATUS. SAFETY MEASURES MAINTAINED AT ALL TIMES
--- NOTE | 2017-09-19 07:10 | NUR ---
Received patient laying in bed, awake, alert and oriented x4, in no acute distress. NICOLE PICC line intact, dressing changed. IV running at 60 cc/hr, patent with blood return. Will continue to monitor.
[2017-09-19] MEDS: INSULIN REGULAR, HUMAN 300 UNIT/3 ML VIAL SQ PRN ×3 (07:53→17:17)
[2017-09-19] MEDS: PROTEIN SUPPLEMENT (PROSTAT) 30 ML LIQUID PO SCH ×3 (08:00→17:19)
[2017-09-19] MEDS: AMLODIPINE 10 MG TABLET PO SCH (08:04)
[2017-09-19] MEDS: ASCORBIC ACID 500 MG TABLET PO SCH ×2 (08:04→17:18)
[2017-09-19] MEDS: FERROUS SULFATE 325 MG TABEC PO SCH (08:04)
[2017-09-19] MEDS: ACIDOPHILUS/BULGARICUS CHEW TAB PO SCH ×2 (08:04→17:18)
[2017-09-19] MEDS: MULTIVIT, IRON, MIN NO. 8, FA TABLET PO SCH (08:05)
[2017-09-19] MEDS: OXYBUTYNIN XL 5 MG TABSR PO SCH ×2 (08:05→20:19)
[2017-09-19] MEDS: DOCUSATE SODIUM 100 MG CAPSULE PO SCH ×2 (08:05→17:18)
[2017-09-19] MEDS: METOPROLOL TARTRATE 25 MG TABLET PO SCH ×2 (08:05→20:24)
[2017-09-19] MEDS: CHOLECALCIFEROL 1,000 UNIT TABLET PO SCH (08:05)
[2017-09-19] MEDS: OXYCODONE HCL 10 MG TAB.SR.12H PO SCH ×2 (08:05→20:20)
[2017-09-19] MEDS: DULOXETINE 60 MG CAPSULE.DR PO SCH (08:05)
[2017-09-19] MEDS: SENNOSIDES 1 TABLET PO SCH ×2 (08:05→20:19)
[2017-09-19] MEDS: ZINC SULFATE 220 MG CAPSULE PO SCH (08:05)
[2017-09-19] MEDS: CADEXOMER IODINE 40 GM TUBE TOP SCH (08:06)
[2017-09-19] MEDS: CLOTRIMAZOLE 1% CREAM 30 GM TUBE TOP SCH ×2 (08:06→17:20)
[2017-09-19] MEDS: Z GUARD REMEDY PASTE 57 GM TUBE TOP SCH ×2 (08:07→20:23)
[2017-09-19] MEDS: diphenhydrAMINE 25 MG CAP PO PRN ×2 (08:51→17:18)
[2017-09-19 11:38] VITALS: BP 155/65
--- NOTE | 2017-09-19 13:38 | NUR ---
Clinical Pharmacy Note: Vancomycin Pharmacy to Dose Subjective: To continue vancomycin in this 67 /yo female for indication of osteomyelitis Objective: weight 147kg height 152 cm BUN 18(09/18) Scr 1.3 (09/18) wbc 9.0(09/18) temp 98.4 Assessment/Plan Dosing per level as renal function had decreased. No new labs for today. Last 2gm dosed yesterday at 2100 and next random with am labs on 09/20. Will follow level tomorrow and re-dose as needed. Will follow
[2017-09-19] MEDS ORDERED: HYDROMORPHONE 1 MG/1 ML DISP.SYRIN IV PRN (15:15)
[2017-09-19 15:36] VITALS: BP 155/79
[2017-09-19] MEDS: HYDROMORPHONE 2 MG/1 ML DISP.SYRIN IV PRN (15:39)
[2017-09-19] MEDS: RIVAROXABAN 10 MG TABLET PO SCH (17:18)
[2017-09-19] MEDS: POTASSIUM CHLORIDE 20 MEQ in IV D5 1/2 NS 1000 ML 1,000 ML IV PRN (17:22)
--- NOTE | 2017-09-19 19:44 | NUR ---
RECEIVED PT LYING IN BED. ASLEEP, BUT AROUSABLE. IN NO ACUTE DISTRESS. ON O2 AT 2LPM VIA NC. O2 SAT AT 96%. PICC LINE ON NICOLE INTACT AND PATENT. IVF INFUSING. LLE FLOATED WITH PILLOW. DRESSING INTACT TO LEFT FOOT. SAFETY MEASURE INITIATED AND CALL GRIFFIN WITHIN REACH.
[2017-09-19 20:13] VITALS: BP 93/69
[2017-09-19] MEDS: ATORVASTATIN 20 MG TABLET PO SCH (20:19)
[2017-09-20] MEDS: HYDROMORPHONE 2 MG/1 ML DISP.SYRIN IV PRN ×4 (01:24→22:45)
[2017-09-20] MEDS: PIPERACILLIN/TAZOBACTAM/D5W 50 ML IV SCH ×3 (05:00→17:08)
--- NOTE | 2017-09-20 06:10 | NUR ---
AAOX4. IN NO ACUTE DISTRESS. ON CONTINUOUS O2 AT 4LPM VIA NC. O2 SAT AT 99%. PICC LINE ON NICOLE INTACT AND PATENT. IVF INFUSING. NO ADVERSE REACTION NOTED FROM IV ABX. SAFETY MEASURE MAINTAINED AND CALL GRIFFIN WITHIN REACH.
[2017-09-20] MEDS: BLOOD SUGAR DIAGNOSTIC 1 EACH STRIP VI SCH ×4 (06:31→20:16)
[2017-09-20 06:37] VITALS: BP 142/66
[2017-09-20 06:44] LABS: BILIRUBIN,TOTAL 0.4 mg/dL (0.2-1.0); CREATININE 1.4 mg/dL (0.6-1.3); MAGNESIUM 1.8 mg/dL (1.8-2.4); PHOSPHOROUS 3.6 mg/dL (2.5-4.9); POTASSIUM 4.1 mmol/L (3.5-5.1); TOTAL PROTEIN, SERUM 5.9 g/dL (6.4-8.2)
--- NOTE | 2017-09-20 07:00 | NUR ---
Received patient in bed, awake, alert and oriented x4, in no acute distress. NICOLE PICC line intact, IV fluids running, able to tolerate well. Dressing intact on left foot, no bleeding noted. Will continue to monitor
[2017-09-20 07:03] LABS: BASOPHILS % (AUTO) 0.3 % (0.0-2.0); EOSINOPHILS # (AUTO) 0.3 K/uL (0.0-0.7); EOSINOPHILS % (AUTO) 3.5 % (0.0-7.0); HEMATOCRIT 25.4 % (31.2-41.9); HEMOGLOBIN 8.5 g/dL (10.9-14.3); LYMPHOCYTES # (AUTO) 1.8 K/uL (20.0-40.0); LYMPHOCYTES % (AUTO) 19.6 % (20.5-51.5); MEAN CORPUSCULAR HEMOGLOBIN 28.4 uug (24.7-32.8); MEAN CORPUSCULAR HGB CONC 33 g/dL (32.3-35.6); MEAN CORPUSCULAR VOLUME 85.3 fL (75.5-95.3); MONOCYTES # (AUTO) 0.4 K/uL (2.0-10.0); MONOCYTES % (AUTO) 4.7 % (0.0-11.0); NEUTROPHILS # (AUTO) 6.5 K/uL (1.8-8.9); NEUTROPHILS % (AUTO) 71.9 % (38.5-71.5); PLATELET COUNT (AUTO) 150 K/uL (179-408); RED BLOOD CELL COUNT(AUTO) 2.98 MIL/uL (3.63-4.92); WHITE BLOOD COUNT (AUTO) 9.1 K/uL (3.8-11.8)
[2017-09-20] MEDS: PROTEIN SUPPLEMENT (PROSTAT) 30 ML LIQUID PO SCH ×3 (08:00→17:00)
[2017-09-20] MEDS: SENNOSIDES 1 TABLET PO SCH ×2 (08:08→20:22)
[2017-09-20] MEDS: INSULIN REGULAR, HUMAN 300 UNIT/3 ML VIAL SQ PRN ×3 (08:08→17:10)
[2017-09-20] MEDS: ZINC SULFATE 220 MG CAPSULE PO SCH (08:08)
[2017-09-20] MEDS: CHOLECALCIFEROL 1,000 UNIT TABLET PO SCH (08:08)
[2017-09-20] MEDS: ASCORBIC ACID 500 MG TABLET PO SCH ×2 (08:08→17:06)
[2017-09-20] MEDS: OXYBUTYNIN XL 5 MG TABSR PO SCH ×2 (08:08→20:23)
[2017-09-20] MEDS: METOPROLOL TARTRATE 25 MG TABLET PO SCH ×2 (08:09→20:24)
[2017-09-20] MEDS: DOCUSATE SODIUM 100 MG CAPSULE PO SCH ×2 (08:09→17:06)
[2017-09-20] MEDS: AMLODIPINE 10 MG TABLET PO SCH (08:09)
[2017-09-20] MEDS: DULOXETINE 60 MG CAPSULE.DR PO SCH (08:09)
[2017-09-20] MEDS: OXYCODONE HCL 10 MG TAB.SR.12H PO SCH ×2 (08:09→20:09)
[2017-09-20] MEDS: FERROUS SULFATE 325 MG TABEC PO SCH (08:09)
[2017-09-20] MEDS: ACIDOPHILUS/BULGARICUS CHEW TAB PO SCH ×2 (08:09→17:06)
[2017-09-20] MEDS: MULTIVIT, IRON, MIN NO. 8, FA TABLET PO SCH (08:10)
[2017-09-20] MEDS: CADEXOMER IODINE 40 GM TUBE TOP SCH (08:10)
[2017-09-20] MEDS: CLOTRIMAZOLE 1% CREAM 30 GM TUBE TOP SCH ×2 (08:10→17:06)
[2017-09-20] MEDS: Z GUARD REMEDY PASTE 57 GM TUBE TOP SCH ×2 (08:10→20:45)
--- NOTE | 2017-09-20 11:25 | NUR ---
Dr. Givens was in the unit to see patient, dressing was changed on the left foot. Per MD dressing to be change every 2-3 days. Will continue to monitor.
[2017-09-20 12:00] VITALS: BP 125/63
[2017-09-20] MEDS ORDERED: diphenhydrAMINE 50 MG/1 ML VIAL IV PRN (13:45)
--- NOTE | 2017-09-20 14:06 | NUR ---
Clinical Pharmacy Note: Vancomycin Pharmacy to Dose Subjective: To continue vancomycin in this 67 /yo female for indication of osteomyelitis Objective: weight 147kg height 152 cm BUN 18 Scr 1.4 wbc 9.1 temp 98.2 Random: 24.7 today with am labs Assessment/Plan As Scr continued to increase, will continue dosing per level. Based on random this am, no dose for today (last dose of 2gm on 09/18 @2100). Random ordered again with am labs tomorrow. Will check and re-dose as needed. Will follow
[2017-09-20] MEDS: FAMOTIDINE 20 MG TABLET PO SCH ×2 (14:21→20:10)
[2017-09-20] MEDS: POTASSIUM CHLORIDE 20 MEQ in IV D5 1/2 NS 1000 ML 1,000 ML IV PRN (14:29)
[2017-09-20 15:49] VITALS: BP 143/76
[2017-09-20] MEDS: RIVAROXABAN 10 MG TABLET PO SCH (17:09)
[2017-09-20] MEDS: RIVAROXABAN 15 MG TABLET PO SCH (17:21)
--- NOTE | 2017-09-20 17:22 | NUR ---
Xarelto 15 mg PO at 1800 today was not given due to Xarelto 20 mg PO was already given. Will give 15mg starting tomorrow.
--- NOTE | 2017-09-20 17:45 | NUR ---
End of shift note: Patient is awake, alert and oriented x4, in no acute distress. medicated for pain as needed and was effective. No s/s of hypoglycemia noted. Dr. Ingram was in the unit and seen patient with new orders noted and carried out. No acute change of condition noted. Kept clean and dry. NICOLE PICC line intact, positive blood return. All needs attended and met. will continue to monitor.
--- NOTE | 2017-09-20 19:00 | NUR ---
RECEIVED PATIENT IN BED ALERT ORIENTED, NO SOB NO CHEST PAIN NOTED, CONT ON PAIN MANAGEMENT, DRESSING INTACT OF LEFT FOOT, TURN AND REPOSITION EVERY TWO HOURS, KEPT CLEAN AND DRY.
[2017-09-20 20:05] VITALS: BP 143/66
[2017-09-20] MEDS: ATORVASTATIN 20 MG TABLET PO SCH (20:10)
[2017-09-20] MEDS: INSULIN REGULAR, HUMAN 300 UNITS/3 ML VIAL SQ PRN (20:19)
[2017-09-20] MEDS: INSULIN GLARGINE,HUM 300 UNITS/3 ML CARTRIDGE SQ SCH (20:20)
[2017-09-20] MEDS ORDERED: CEFEPIME HCL 1 G VIAL ONE (20:23)
[2017-09-20] MEDS ORDERED: CEFEPIME HCL 1 G in IV DEXTROSE 5% 50 ML IV ONE (21:00)
[2017-09-20] MEDS ORDERED: INSULIN GLARGINE,HUM 300 UNITS/3 ML CARTRIDGE SQ SCH (21:00)
[2017-09-21] MEDS: OXYCODONE/APAP 5-325 MG TABLET PO PRN (04:53)
--- NOTE | 2017-09-21 05:29 | NUR ---
PATIENT ALERT, ORIENTED, NO SOB CHEST PAIN NOTED, CONT ON PAIN MANAGEMENT DUE LEFT TOES AMPUTATIONS, ON LOW AIR LOSS MATTRESS, TURN AND REPOSITION MUCH POSSIBLE, CONT TO MONITOR.
[2017-09-21] MEDS: BLOOD SUGAR DIAGNOSTIC 1 EACH STRIP VI SCH ×4 (06:12→20:46)
[2017-09-21 06:57] VITALS: BP 130/66
[2017-09-21 06:58] LABS: CREATININE 1.4 mg/dL (0.6-1.3); VANCOMYCIN,RANDOM 15.5 ug/mL (18.0-26.0)
[2017-09-21 07:04] LABS: BASOPHILS % (AUTO) 0.4 % (0.0-2.0); EOSINOPHILS # (AUTO) 0.3 K/uL (0.0-0.7); HEMATOCRIT 24.9 % (31.2-41.9); HEMOGLOBIN 8.1 g/dL (10.9-14.3); LYMPHOCYTES # (AUTO) 1.8 K/uL (20.0-40.0); MEAN CORPUSCULAR HEMOGLOBIN 27.8 uug (24.7-32.8); MEAN CORPUSCULAR HGB CONC 33 g/dL (32.3-35.6); MEAN CORPUSCULAR VOLUME 84.9 fL (75.5-95.3); MONOCYTES # (AUTO) 0.5 K/uL (2.0-10.0); MONOCYTES % (AUTO) 5.8 % (0.0-11.0); NEUTROPHILS # (AUTO) 5.6 K/uL (1.8-8.9); NEUTROPHILS % (AUTO) 67.8 % (38.5-71.5); PLATELET COUNT (AUTO) 148 K/uL (179-408); RED BLOOD CELL COUNT(AUTO) 2.93 MIL/uL (3.63-4.92); WHITE BLOOD COUNT (AUTO) 8.3 K/uL (3.8-11.8)
[2017-09-21] MEDS: PROTEIN SUPPLEMENT (PROSTAT) 30 ML LIQUID PO SCH ×4 (08:00→17:00)
--- NOTE | 2017-09-21 08:00 | NUR ---
AWAKE COOPERATE WELL NO SOB ON FALL AND ASPIRATION PRECAUTION ,RESTING WELL WITH CALL LIGHT IN REACH AND INSTRUCTION TO CALL WHEN NEEDED
[2017-09-21] MEDS: CHOLECALCIFEROL 1,000 UNIT TABLET PO SCH (08:54)
[2017-09-21] MEDS: ACIDOPHILUS/BULGARICUS CHEW TAB PO SCH ×2 (08:54→17:22)
[2017-09-21] MEDS: DOCUSATE SODIUM 100 MG CAPSULE PO SCH ×2 (08:54→17:00)
[2017-09-21] MEDS: DULOXETINE 60 MG CAPSULE.DR PO SCH (08:54)
[2017-09-21] MEDS: ZINC SULFATE 220 MG CAPSULE PO SCH (08:54)
[2017-09-21] MEDS: FERROUS SULFATE 325 MG TABEC PO SCH (08:54)
[2017-09-21] MEDS: AMLODIPINE 10 MG TABLET PO SCH (08:55)
[2017-09-21] MEDS: ASCORBIC ACID 500 MG TABLET PO SCH ×2 (08:55→17:22)
[2017-09-21] MEDS: METOPROLOL TARTRATE 25 MG TABLET PO SCH ×2 (08:55→20:37)
[2017-09-21] MEDS: MULTIVIT, IRON, MIN NO. 8, FA TABLET PO SCH ×2 (08:55→09:00)
[2017-09-21] MEDS: SENNOSIDES 1 TABLET PO SCH ×2 (08:55→20:38)
[2017-09-21] MEDS: FAMOTIDINE 20 MG TABLET PO SCH ×2 (08:56→20:38)
[2017-09-21] MEDS: OXYCODONE HCL 10 MG TAB.SR.12H PO SCH ×2 (08:56→20:38)
[2017-09-21] MEDS: OXYBUTYNIN XL 5 MG TABSR PO SCH ×2 (08:56→20:46)
[2017-09-21] MEDS: Z GUARD REMEDY PASTE 57 GM TUBE TOP SCH ×2 (08:56→20:38)
[2017-09-21] MEDS: CLOTRIMAZOLE 1% CREAM 30 GM TUBE TOP SCH ×2 (08:57→17:23)
[2017-09-21] MEDS: CADEXOMER IODINE 40 GM TUBE TOP SCH (08:57)
[2017-09-21] MEDS ORDERED: IV D5W-0.45% NS + KCL 30 MEQ/1000 ML BAG IV PRN (11:02)
[2017-09-21 11:25] VITALS: BP 120/45
[2017-09-21] MEDS: INSULIN REGULAR, HUMAN 300 UNIT/3 ML VIAL SQ PRN ×2 (12:03→17:28)
[2017-09-21 15:22] VITALS: BP 126/46
[2017-09-21] MEDS: CEFEPIME HCL 1 G in IV DEXTROSE 5% 50 ML IV SCH (15:40)
[2017-09-21] MEDS: POTASSIUM CHLORIDE 30 MEQ in IV D5 1/2 NS 1000 ML 1,000 ML IV PRN (15:40)
[2017-09-21] MEDS: RIVAROXABAN 15 MG TABLET PO SCH (17:28)
--- NOTE | 2017-09-21 18:00 | NUR ---
STABLE HEMODYNAMIC STATUS NO ACUTE DISTRESS SAFETY MEASURE PROVIDED CALL LIGHT IN REACH
[2017-09-21 19:00] VITALS: BP 143/57
--- NOTE | 2017-09-21 19:20 | NUR ---
nsg: pt received asleep but arousable. no acute distress noted. denies pain or any discomfort at this time. on 2L O2 via nc. HOB elevated 35 degrees. bilateral lower extremity elevated on pillows. on specialty bed. call light within reach.
[2017-09-21] MEDS: ATORVASTATIN 20 MG TABLET PO SCH (20:37)
[2017-09-21] MEDS: INSULIN GLARGINE,HUM 300 UNITS/3 ML CARTRIDGE SQ SCH (20:47)
[2017-09-21] MEDS: INSULIN REGULAR, HUMAN 300 UNITS/3 ML VIAL SQ PRN (20:48)
[2017-09-21] MEDS ORDERED: CEFEPIME HCL 0.5 G in IV DEXTROSE 5% 50 ML IV SCH (21:00)
--- NOTE | 2017-09-22 | NUR ---
nsg: no acute distress noted. denies discomfort. cont to monitor.
[2017-09-22 04:00] VITALS: BP 150/50
[2017-09-22] MEDS: CEFEPIME HCL 1 G in IV DEXTROSE 5% 50 ML IV SCH ×2 (04:50→15:07)
[2017-09-22] MEDS: POTASSIUM CHLORIDE 30 MEQ in IV D5 1/2 NS 1000 ML 1,000 ML IV PRN (04:53)
[2017-09-22 05:45] VITALS: BP 149/63
--- NOTE | 2017-09-22 05:46 | NUR ---
nsg: all needs attended. pt denies discomfort. kept clean and dry. all needs attended. cont to monitor.
[2017-09-22] MEDS: BLOOD SUGAR DIAGNOSTIC 1 EACH STRIP VI SCH ×3 (06:29→17:00)
[2017-09-22 06:48] LABS: CREATININE 1.2 mg/dL (0.6-1.3); POTASSIUM 4.5 mmol/L (3.5-5.1)
[2017-09-22 07:03] LABS: BASOPHILS % (AUTO) 0.3 % (0.0-2.0); EOSINOPHILS # (AUTO) 0.2 K/uL (0.0-0.7); HEMOGLOBIN 8.1 g/dL (10.9-14.3); LYMPHOCYTES # (AUTO) 1.5 K/uL (20.0-40.0); LYMPHOCYTES % (AUTO) 20.8 % (20.5-51.5); MEAN CORPUSCULAR HEMOGLOBIN 27.6 uug (24.7-32.8); MEAN CORPUSCULAR HGB CONC 33 g/dL (32.3-35.6); MEAN CORPUSCULAR VOLUME 84.6 fL (75.5-95.3); MONOCYTES # (AUTO) 0.4 K/uL (2.0-10.0); MONOCYTES % (AUTO) 6.1 % (0.0-11.0); NEUTROPHILS # (AUTO) 5.1 K/uL (1.8-8.9); NEUTROPHILS % (AUTO) 69.8 % (38.5-71.5); PLATELET COUNT (AUTO) 171 K/uL (179-408); RED BLOOD CELL COUNT(AUTO) 2.96 MIL/uL (3.63-4.92); WHITE BLOOD COUNT (AUTO) 7.3 K/uL (3.8-11.8)
[2017-09-22] MEDS: PROTEIN SUPPLEMENT (PROSTAT) 30 ML LIQUID PO SCH ×3 (08:00→17:00)
--- NOTE | 2017-09-22 08:00 | NUR ---
AWAKE ALERT COOPERATE NO SOB OR PAIN AT THIS TIME ON FALL /ASPIRATION PRECAUTION CALL LIGHT IN REACH AND INSTRUCTION TO CALL WHEN NEED
[2017-09-22] MEDS: CHOLECALCIFEROL 1,000 UNIT TABLET PO SCH (08:23)
[2017-09-22] MEDS: CLOTRIMAZOLE 1% CREAM 30 GM TUBE TOP SCH ×2 (08:23→17:36)
[2017-09-22] MEDS: Z GUARD REMEDY PASTE 57 GM TUBE TOP SCH (08:23)
[2017-09-22] MEDS: FERROUS SULFATE 325 MG TABEC PO SCH (08:23)
[2017-09-22] MEDS: CADEXOMER IODINE 40 GM TUBE TOP SCH (08:23)
[2017-09-22] MEDS: OXYCODONE HCL 10 MG TAB.SR.12H PO SCH (08:24)
[2017-09-22] MEDS: SENNOSIDES 1 TABLET PO SCH (08:24)
[2017-09-22] MEDS: ACIDOPHILUS/BULGARICUS CHEW TAB PO SCH ×2 (08:24→17:36)
[2017-09-22] MEDS: DOCUSATE SODIUM 100 MG CAPSULE PO SCH ×2 (08:24→17:00)
[2017-09-22] MEDS: DULOXETINE 60 MG CAPSULE.DR PO SCH (08:24)
[2017-09-22] MEDS: ASCORBIC ACID 500 MG TABLET PO SCH ×2 (08:24→17:36)
[2017-09-22] MEDS: AMLODIPINE 10 MG TABLET PO SCH (08:25)
[2017-09-22] MEDS: METOPROLOL TARTRATE 25 MG TABLET PO SCH (08:25)
[2017-09-22] MEDS: FAMOTIDINE 20 MG TABLET PO SCH (08:25)
[2017-09-22] MEDS: INSULIN REGULAR, HUMAN 300 UNIT/3 ML VIAL SQ PRN ×2 (08:26→12:34)
[2017-09-22] MEDS: MULTIVIT, IRON, MIN NO. 8, FA TABLET PO SCH (09:00)
[2017-09-22] MEDS: OXYBUTYNIN XL 5 MG TABSR PO SCH ×2 (09:00→12:30)
[2017-09-22] MEDS: ZINC SULFATE 220 MG CAPSULE PO SCH (09:35)
[2017-09-22 11:03] VITALS: BP 153/89
[2017-09-22] MEDS ORDERED: CEFE1FRO IV (11:16)
[2017-09-22] MEDS ORDERED: RIVA15TA PO (11:16)
[2017-09-22] MEDS ORDERED: PANT20TA2 PO (11:16)
[2017-09-22] MEDS ORDERED: CLOT30CR24 TOP (11:16)
[2017-09-22] MEDS ORDERED: POVI1MED TP (11:16)
[2017-09-22] MEDS ORDERED: PROT30LI PO (11:16)
[2017-09-22] MEDS ORDERED: OXYB5TAB29 PO (11:16)
[2017-09-22] MEDS ORDERED: INSU100V28 SQ ×2 (11:16)
[2017-09-22] MEDS ORDERED: CHOL10002 PO (11:16)
[2017-09-22] MEDS ORDERED: Multivit, Iron, Min No. 8, Fa PO (11:16)
[2017-09-22] MEDS ORDERED: Insulin Glargine,Hum SQ (11:16)
[2017-09-22] MEDS ORDERED: CADE40GE2 TOP (11:16)
--- NOTE | 2017-09-22 15:00 | NUR ---
[employer] SECOND OPERATOR Fred CASTILLO SEEN PATIENT AND ORDER OK TO D/C TO [facility] TODAY WITH ORDER D/C INSTRUCTION GIVEN E REGARDING F/U WITH PMD AND SURGEON IN 1 WEEK AND CONTINUE MED ORDER ,VERBALIZES UNDERSTAND AND SIGNS D/C SHEET PICC LINE KEEP FOR CONTINUE ANTIBIOTICS AT SNF
[2017-09-22 15:28] VITALS: BP 152/64
[2017-09-22] MEDS: HYDROCODONE/APAP 5-325MG TABLET PO PRN (15:43)
--- NOTE | 2017-09-22 16:00 | NUR ---
WOUND CARE DSG CHANGE DONE ,PATIENT REFUSED TO TAKE PICTURE ABLE TO TAKE AT ABD FOLDER SKIN REDNESS
[2017-09-22] MEDS: RIVAROXABAN 15 MG TABLET PO SCH (18:00)
--- NOTE | 2017-09-22 18:45 | NUR ---
D/C TO [facility] CONDITION STABLE NO ACUTE DISTRESS NO PAIN AT THIS TIME
== END 2017-09-22 18:45 | DRG 239 ==
LOC: ER 13:48 → TELE 15:30 → MED 09-19 13:13
PROVIDERS: ADMIT Internal Medicine; ATTEND Internal Medicine
PROC: 02HV33Z Insertion of Infusion Device into Superior Vena Cava, Percutaneous Approach (ICD-10-PCS; 2017-09-15)
PROC: 0Y6N0ZC Detachment at Left Foot, Partial 3rd Ray, Open Approach (ICD-10-PCS; 2017-09-17)
PROC: 0Y6N0ZD Detachment at Left Foot, Partial 4th Ray, Open Approach (ICD-10-PCS; 2017-09-17)
PROC: 0Y6N0ZF Detachment at Left Foot, Partial 5th Ray, Open Approach (ICD-10-PCS; 2017-09-17)
PROC: 0Y6N0ZB Detachment at Left Foot, Partial 2nd Ray, Open Approach (ICD-10-PCS; principal; 2017-09-17 07:30)
DX: E11.52 Type 2 diabetes mellitus with diabetic peripheral angiopathy with gangrene (principal); E43 Unspecified severe protein-calorie malnutrition; N17.0 Acute kidney failure with tubular necrosis; E11.22 Type 2 diabetes mellitus with diabetic chronic kidney disease; D68.59 Other primary thrombophilia; E11.42 Type 2 diabetes mellitus with diabetic polyneuropathy; I96 Gangrene, not elsewhere classified; E11.69 Type 2 diabetes mellitus with other specified complication; Z68.44 Body mass index [BMI] 60.0-69.9, adult; L03.116 Cellulitis of left lower limb; N39.0 Urinary tract infection, site not specified; M86.8X7 Other osteomyelitis, ankle and foot; E66.01 Morbid (severe) obesity due to excess calories; I48.2 Chronic atrial fibrillation; Z79.4 Long term (current) use of insulin; Z71.3 Dietary counseling and surveillance; E78.5 Hyperlipidemia, unspecified; Z89.412 Acquired absence of left great toe; Z74.09 Other reduced mobility; N18.2 Chronic kidney disease, stage 2 (mild); Z86.73 Personal history of transient ischemic attack (TIA), and cerebral infarction without residual deficits; Z79.01 Long term (current) use of anticoagulants; Z90.710 Acquired absence of both cervix and uterus; B96.89 Other specified bacterial agents as the cause of diseases classified elsewhere; L84 Corns and callosities; M85.80 Other specified disorders of bone density and structure, unspecified site; Z53.1 Procedure and treatment not carried out because of patient's decision for reasons of belief and group pressure; L27.0 Generalized skin eruption due to drugs and medicaments taken internally; T36.95XA Adverse effect of unspecified systemic antibiotic, initial encounter; Y92.129 Unspecified place in nursing home as the place of occurrence of the external cause; Z86.31 Personal history of diabetic foot ulcer; I25.10 Atherosclerotic heart disease of native coronary artery without angina pectoris; G89.29 Other chronic pain; D63.8 Anemia in other chronic diseases classified elsewhere; N18.9 Chronic kidney disease, unspecified; I13.10 Hypertensive heart and chronic kidney disease without heart failure, with stage 1 through stage 4 chronic kidney disease, or unspecified chronic kidney disease; K21.9 Gastro-esophageal reflux disease without esophagitis
CPT/HCPCS: 36415; 70030-TC; 71045; 73630; 83605; 83735; 84100; 85025; 85730; 86850; 86900; 86901; 87040; 87077; 87086; 93005; A4649; A4663; C1751; J0330; J0692; J1170; J1200; J1580; J1815; J2250; J2405; J2543; J2710; J3010; J3370; J3480; J3490; J7030; J7050; J7060; Q0163